=== PATIENT | female | born 1985 | race Caucasian/White ===

== ENCOUNTER 2023-04-20 13:04 | Outpatient (CLI) | payer BC, SELFPAY ==
--- NOTE | 2023-04-20 14:30 | NEURO_ITS ---
Impression: # Complains of tingling/numbness of hands. ? # No Carpal Tunnel Syndrome or ulnar neuropathy. ? # Needle/EMG exam not requested. ? # Clinical correlation recommended. ? Nerve Conduction Studies Anti Sensory Summary Table Stim Site NR Peak (ms) P-T Amp (?V) Site1 Site2 Delta-P (ms) Dist (cm) Elias (m/s) Left Median Anti Sensory (2-3nd Digit) Wrist 2.4 74.7 Wrist 2-3nd Digit 2.4 14.0 58 Wrist 2.3 73.5 Wrist 2-3nd Digit 2.4 14.0 58 Right Median Anti Sensory (2-3nd Digit) Wrist 2.5 80.1 Wrist 2-3nd Digit 2.5 14.0 56 Wrist 2.5 84.5 Wrist 2-3nd Digit 2.5 14.0 56 Left Radial Anti Sensory (Base 1st Digit) Wrist 1.9 30.4 Wrist Base 1st Digit 1.9 0.0 Right Radial Anti Sensory (Base 1st Digit) Wrist 2.2 14.8 Wrist Base 1st Digit 2.2 0.0 Left Ulnar Anti Sensory (5th Digit) Wrist 2.4 52.9 Wrist 5th Digit 2.4 14.0 58 Right Ulnar Anti Sensory (5th Digit) Wrist 2.3 80.7 Wrist 5th Digit 2.3 14.0 61 Motor Summary Table Stim Site NR Onset (ms) O-P Amp (mV) Site1 Site2 Delta-0 (ms) Dist (cm) Elias (m/s) Left Median Motor (Abd Poll Brev) Wrist 3.1 3.4 Elbow Wrist 4.2 29.0 69 Elbow 7.3 7.9 Right Median Motor (Abd Poll Brev) Wrist 2.9 10.3 Elbow Wrist 4.4 27.0 61 Elbow 7.3 8.8 Left Ulnar Motor (Abd Dig Minimi) Wrist 2.3 8.4 A Elbow Wrist 4.4 26.0 59 A Elbow 6.7 8.0 Right Ulnar Motor (Abd Dig Minimi) Wrist 2.1 8.8 A Elbow Wrist 4.4 26.0 59 A Elbow 6.5 7.9 F Wave Studies NR F-Lat (ms) L-R F-Lat (ms) Left Median (Mrkrs) (Abd Poll Brev) 24.30 1.03 Right Median (Mrkrs) (Abd Poll Brev) 25.33 1.03 Left Ulnar (Mrkrs) (Abd Dig Min) 24.82 0.82 Right Ulnar (Mrkrs) (Abd Dig Min) 24.01 0.82 MTDD
== END 2023-04-20 13:05 | disposition home or self-care (01) ==
LOC: ANHNEURO 13:05
PROVIDERS: Visit Provider Plastic Surgery
DX: R20.2 Paresthesia of skin (principal)
CPT/HCPCS: 95911

== ENCOUNTER 2024-05-15 02:24 | Day surgery (SDC) | payer BC, SELFPAY ==
[2024-05-08 09:50] VITALS: BMI 20.4
--- NOTE | 2024-05-08 09:56 | PC.NURSE ---
Report to the Outpatient Waiting Room, entrance under the green pavilion located off [facility], at time _0800_ on date _[id number]_. Planned Procedure Time: _1000_.? Time changes happen often and if your time is changed the preop area will call you the afternoon before. - You and your visitor will be asked to self-screen and do not enter if you have any COVID symptoms. Please call surgeon if you need to reschedule. - A mask is optional within the hospital at this time. Patients may have clear liquids (water, carbonated beverages, clear teas, apple juice) until 3 hours prior to surgery with a maximum of 20 ounces. - No food from midnight until time of surgery and no smoking, or chewing tobacco (or any form of nicotine). No chewing gum, candy or mints. Take only the following medications with a SIP of water on the morning of surgery: ___None___ DO NOT STOP ANY OF YOUR OTHER PRESCRIPTION MEDICATIONS PRIOR TO SURGERY EXCEPT THE FOLLOWING Hold all vitamins and supplements for 3 days per anesthesiologist. Medications to discontinue per physician Date to take last dose Please no make-up, nail malian, hairspray, perfume, deodorant, or body powder the day of surgery.? No jewelry (including any body piercings) or valuables the day of surgery, leave them at home.? Please take a shower or bath the night before, or the morning of, surgery with an antibacterial soap.? Wear comfortable, loose fitting clothing.? - Jewelry must be removed prior to entering the operating room.? Rings and piercings that are not removed may be cut off. - The hospital will not accept responsibility for valuables.? - Please leave all valuables, including medications, at home the day of surgery. If you are going home after surgery, a licensed food service driver must drive you home.? - NO public transportation without another adult if you receive anesthesia. - We recommend that an adult stay with you for 24 hours following discharge. - We also recommend that you do not drive, make important decision, drink alcoholic beverages, or take any drugs that were not prescribed by your health care provider for at least 24 hours after your discharge time. Follow any additional instructions given to you from your surgeon. Telephone instructions given to __Martina__and asked if any additional questions and then verbalized understanding. Patient advised to call surgeon office or pre surgery nurse liaison [phone] if any additional questions.
[2024-05-15] VITALS (9 sets, daily range): BP systolic 101–125; BP diastolic 63–71; PULSE 60–87; RESP 14–18; TEMP 36.4–36.5; O2SAT 99–100
--- OUTSIDE RECORDS SUMMARY | 2024-05-15 02:27 | XMS_ITS | Clinical Summary ---
Author Organization [facility] Address [address] [place] [address] Care Team Providers Care [employer] Architect Name Role Phone Unavailable Primary Care Provider Unavailabl e Allergies Active Allergy Reactions Criticality Noted Date Comments Amoxicillin Hives High 04/05/2023 Medications HYDROcodone-acet aminophen (NORCO) 5-325 mg tabletIndication s:Mass overlapping multiple quadrants of right breast Take 1 Tablet by mouth every 4 hours as needed for Pain, Moderate. Max Daily Amount: 6 Tablets 10 Tablet 11/01/2023 4:39 PM CDT 11/01/2023 Active amoxicillin-clav ulanate (AUGMENTIN) 875-125 mg tablet Take 1 Tablet by mouth 2 times daily. 02/24/2024 Active Active Problems Problem Noted Date Diagnosed Date Mass overlapping multiple quadrants of right belkis ast 10/07/2023 Nausea and vomiting in 07/03/2021 Encounters Date Type Department Care Team Description 05/09/2024 External Device Data [facility] ABSTRACTION Provider, Abstract 04/13/2024 External Device Data [facility]STRACTION Provider, Abstract 04/12/2024 External Device Data [facility]STRACTION Provider, Abstract 04/11/2024 11:15 AM CALL OUT CLERK Office Visit [facility] Oncology and Hematology [address] [place] [address] Sadaf Nielsen MD Lymphadenopathy (Primary Dx) 04/11/2024 External Device Data [facility] ABSTRACTION Provider, Abstract 04/07/2024 Chart Note [facility] Oncology Patient Navigation [address] [place] [address] Guillermina Laird RN Biopsy (Results) 04/07/2024 Results Follow-Up [facility] Radiology [address] [place] [phone] Lilia Fleming MD PATHOLOGY 04/07/2024 Telephone [facility] Hematology [address] [facility] [address] [place] [address] Tatum Field, INSIDE SALES PROFESSIONAL Skin irritation 04/07/2024 Telephone [facility]ematology [place] [place] [address] [facility] [address] [place] [address] Sadaf Nielsen MD Results 04/05/2024 10:31 AM CALL OUT CLERK - 04/05/2024 11:59 PM CALL OUT CLERK Hospital Encounter [facility] [place] [address] [place] [address] Sadaf Nielsen MD Discharge Disposition: Home or Self Care 04/05/2024 10:31 AM CALL OUT CLERK - 04/05/2024 11:59 PM CALL OUT CLERK Hospital Encounter [facility] [address] [address] [facility] [place] [address] Sadaf Nielsen MD Discharge Disposition: Home or Self Care 04/05/2024 10:28 AM CALL OUT CLERK - 04/05/2024 11:59 PM CALL OUT CLERK Hospital Encounter [facility] [address] [place] [address] Sadaf Nielsen MD Discharge Disposition: Home or Self Care 03/23/2024 Telephone [facility] Hematology [address] [address] [facility] [facility] [address] [place] [address] Sadaf Nielsen MD order 03/20/[facility] [address] [place] [address] Greta Robertson, CONY schedule biopsy 03/16/2024 Orders Only [facility] Hematology [address] [address] [facility] [facility] [address] [place] [address] Sadaf Nielsen MD Lymphadenopathy (Primary Dx) 03/14/2024 8:01 AM CALL OUT CLERK - 03/14/2024 11:59 PM CALL OUT CLERK Hospital Encounter [facility] CT Scan [place] [address] [facility] [address] [place] [phone] Sadaf Nielsen MD Discharge Disposition: Home or Self Care 03/06/2024 Chart Note [facility] [address] [place] [address] Evelyn Montanez, HOSPITAL SOCIAL WORKER Procedure 2024 Telephone [facility] H[facility]ology [address] [facility] [address] [place] [address] Sadaf Nielsen MD Results 2024 Orders Only [facility]ology [place] [place] [address] [facility] [address] [place] [address] Sadaf Nielsen MD Lymphadenopathy (Primary Dx) 2024 Orders Only [facility]ematology [place] [place] [address] [facility] [address] [place] [address] Sadaf Nielsen MD Lymphadenopathy (Primary Dx) 02/29/2024 11:45 AM CALL OUT CLERK Office Visit [facility] Breast Surgery [address] [address] [facility] [facility] [address] [place] [address] Tatum Field, INSIDE SALES PROFESSIONAL At high risk for breast cancer (Primary Dx); Family history of breast cancer; Atypical ductal hyperplasia of right breast; Breast cancer screening by mammogram; Bilateral breast lump; Axillary adenopathy; Cervical adenopathy 02/29/2024 11:30 AM CALL OUT CLERK - 02/29/2024 11:59 PM CALL OUT CLERK Hospital Encounter [facility] [address] [place] [address] Tatum Field, INSIDE SALES PROFESSIONAL Discharge Disposition: Home or Self Care 02/29/2024 11:15 AM CALL OUT CLERK - 02/29/2024 11:59 PM CALL OUT CLERK Hospital Encounter [facility] [address] [place] [address] Tatum Field, INSIDE SALES PROFESSIONAL Discharge Disposition: Home or Self Care 02/29/2024 10:30 AM CALL OUT CLERK Office Visit [facility] Hematology [address] [place] [address] Sadaf Nielsen MD Lymphadenopathy (Primary Dx) 02/29/2024 Orders Only [facility] Hematology [address] [place] [address] Sadaf Nielsen MD Lymphadenopathy (Primary Dx) 02/29/2024 Telephone [facility] Breast Surgery [address] [place] [address] Tatum Field, INSIDE SALES PROFESSIONAL Diagnostic Mammogram and Bilateral LTD US from Last 3 Months Family History Medical History Relation Name Comments Breast Cancer Maternal Grandmother Breast Cancer Paternal Grandmother Breast Cancer Sister Ovarian Cancer Neg Hx Pancreatic Cancer Neg Hx Relation Name Status Comments Maternal Aunt Alive Maternal Grandmother Paternal Grandmother Sister Social History Tobacco Use Types Packs/Day Years Used Date Smoking Tobacco: Never Tobacco Cessation:Counseling Given: Not Answered Alcohol Use Standard Drinks/Week Comments Never 0 (1 standard drink = 0.6 oz pur e alcohol) Feeling Safe Answer Date Recorded Within the last year, have y ou been afraid of your partner or ex-partner? No 10/07/2023 Emotionally Abused Not on file 10/07/2023 Within the last year, have y ou been kicked, hit, slapped, or otherwise physically hurt by your partner or ex-partner? No 10/07/2023 Sexually Abused Not on file 10/07/2023 Feeling Safe Answer Date Recorded Do you worry about feeling s afe and happy with the people in your life? No 04/11/2024 Feeling Safe Answer Date Recorded Are you in a relationship wi th someone who hurts you emotionally and/or physically? No 11/01/2023 Food Insecurity Answer Date Recorded Social/Environmental Concerns No concerns Transportation Needs Answer Date Record ed Social/Environmental Concerns No concerns Housing Stability Answer Date Recorded Social/Environmental Concerns No concerns Utility Needs Answer Date Recorded Social/Environmental Concerns No concerns Comments No Sex and Gender Information Value Date Recorded Sex Assigned at Not on file Legal Sex Female 1:14 PM CDT Gender Identity Not on file Sexual Orientation Not on file Last Filed Vital Signs Vital Sign Reading Time Taken Comments Blood Pressure 130/88 04/11/2024 11:16 AM CALL OUT CLERK Pulse 88 04/11/2024 11:16 AM CALL OUT CLERK Temperature 37.2 C (99 F) 04/11/2024 11:16 AM CALL OUT CLERK Respiratory Rate 18 11/01/2023 4:47 PM CDT Oxygen Saturation 99% 04/11/2024 11:16 AM CALL OUT CLERK Inhaled Oxygen Concentration - - Weight 58.5 kg (129 lb) 04/11/2024 11:16 AM CALL OUT CLERK Height 160 cm (5' 3 ) 04/11/2024 11:16 AM CALL OUT CLERK Body Mass Index 22.85 04/11/2024 11:16 AM CALL OUT CLERK Plan of Treatment Upcoming Encounters Date Type Department Care Team (Late st Contact Info) Description 05/29/2024 11:00 AM CDT Office Visit [facility] On[facility] Hematology [address] [address] [facility] [address] [place] [address] [place] [address] [facility] [address] [place] [address] 04/02/2025 11:00 AM CALL OUT CLERK [facility] [address] [place] [address] Tatum Field, INSIDE SALES PROFESSIONAL [address] [facility] [address] [place] [address] Health Maintenance Due Date Last Done Comments DTAP/TDAP/TD VACCINES (1 - Tdap) 2005 HEPATITIS B VACCINES (1 of 3 - 19+ 3-dose series) 2005 CERVICAL CANCER SCREENING 2016 INFLUENZA VACCINE (#1) 2023 HPV VACCINES Aged Out No longer eligi ble based on patient's age to complete this topic Procedures Procedure Name Priority Date/Time Associated Diagnosis Comments MAMMO US BIOPSY LYMPH NODE RT Routine 04/05/2024 12:49 PM CALL OUT CLERK Lymphadenopathy MAMMO POST US/STEREO GUIDED PROCEDURE BILATERAL Routine 04/05/2024 12:49 PM CALL OUT CLERK Abnormal finding on breast imaging MAMMO US BIOPSY LYMPH NODE LT Routine 04/05/2024 12:48 PM CALL OUT CLERK Abnormal finding on breast imaging PATHOLOGY Pathology 04/05/2024 12:47 PM CALL OUT CL[address] CHEST ABDOMEN PELVIS W CONT Routine 03/14/2024 8:35 AM CALL OUT CLERK Lymphadenopathy EBV BY PCR Routine 03/06/2024 12:59 PM CALL OUT CLERK Lymphadenopathy JOS SCREEN W/REFLEX Routine 02/29/2024 1 :37 PM CALL OUT CLERK Lymphadenopathy CMV IGG AND IGM ANTIBODIES Routine 02/29/2024 1:37 PM CALL OUT CLERK Lymphadenopathy EBV ANTIBODY PANEL Routine 02/29/2024 1: 37 PM CALL OUT CLERK Lymphadenopathy C-REACTIVE PROTEIN Routine 02/29/2024 1: 37 PM CALL OUT CLERK Lymphadenopathy LACTATE DEHYDROGENASE Routine 02/29/2024 1:37 PM CALL OUT CLERK Lymphadenopathy COMPREHENSIVE METABOLIC PANEL Routine 02/29/2024 1:37 PM CALL OUT CLERK Lymphadenopathy CBC WITH DIFFERENTIAL Routine 02/29/2024 1:37 PM CALL OUT CLERK Lymphadenopathy MAMMO BREAST US BILAT LTD Routine 02/29/2024 12:52 PM CALL OUT CLERK Bilateral breast lump MAMMO 3D DAVID DIAGNOSTIC BILAT W OR WO CAD Routine 02/29/2024 12:52 PM CALL OUT CLERK Bilateral breast lump VITAMIN B12 AND FOLATE [facility] Add-on (Auto-Fax) 02/29/2024 12:00 AM CALL OUT CLERK Lymphadenopathy IRON, TIBC, AND PERCENT SATURATION [facility] Add-on (Auto-Fax) 02/29/2024 12:00 AM CALL OUT CLERK Lymphadenopathy from Last 3 Months Results * MAMMO US BIOPSY LYMPH NODE RT (04/05/2024 12:49 PM CALL OUT CLERK) Anatomical Region Laterality Modality Breast Right Ultrasound Tissue ([place] Lymph Node) 04/05/2024 11:58 AM CALL OUT CLERK Addenda Addendum by Lilia Fleming MD on 04/07/2024 1:25 PM CALL OUT CLERK Pathology addendum: Pathology results: FINAL DIAGNOSIS Lymph node, left axilla, ultrasound-guided core biopsy: -Reactive lymphoid hyperplasia. Lymph node, left axilla, flow cytometric immunophenotypic analysis: -No aberrant T-cell or monotypic population of B cells. -Small subpopulation of polytypic B cells coexpressing CD10, representing reactive germinal centers. Lymph node, right axilla, ultrasound-guided core biopsy: -Reactive lymphoid hyperplasia with clusters of histiocytes. -AFB and GMS stains negative for mycobacterial and fungal microorganisms. -CMV immunohistochemical stain negative for viral inclusions. Lymph node, right axilla, flow cytometric immunophenotypic analysis: -No aberrant T-cell or monotypic population of B cells. -Small subpopulation of polytypic B cells coexpressing CD10, representing reactive germinal centers. The pathology results are benign and concordant with imaging. Annual screening mammography advised unless otherwise clinically indicated. The ordering provider and/or breast center nurse navigator will notify the patient of these results. Impressions 04/05/2024 12:46 PM CALL OUT CLERK IMPRESSION: Status post a sonographically guided core biopsy of a left axillary lymph node. Status post a sonographically guided core biopsy of a right axillary lymph node. Pathology pending. DICTATION LOCATION: [facility] 04/05/2024 12:46 PM CALL OUT CLERK SONOGRAPHICALLY GUIDED CORE BIOPSY OF THE LEFT BREAST SONOGRAPHICALLY GUIDED CORE BIOPSY OF THE RIGHT BREAST. DIGITAL MAMMOGRAM, BILATERAL. DATE: 04/05/2024 11:13 AM HISTORY: Bilateral lymphadenopathy. History of atypical ductal hyperplasia. PROCEDURE AND FINDINGS: LEFT BREAST: A sonographically guided core biopsy of a abnormal left axillary lymph node was performed. The overlying skin was cleansed with ChloraPrep. 1% lidocaine was injected for anesthesia. A small 4 mm skin beverly was made with an 11 blade scalpel. Under sonographic guidance, a 12-gauge spring-assisted core biopsy needle was inserted through the skin beverly and positioned adjacent to the mass. Multiple cores were obtained. Cores were placed in a vial of physiologic saline and some cores were placed formalin. The specimen sent to pathology. A postbiopsy localization HydroMark Butter-Fly clip was deployed under sonographic guidance. Followup [facility] mammogram demonstrated the clip to be in satisfactory position. After the biopsy was completed, pressure was held over the site until all visible signs of bleeding had subsided. The incision was closed with Dermabond and a Steri-Strip. Ice pack was given for comfort. RIGHT BREAST: A sonographically guided core biopsy of a abnormal right axillary lymph node was performed. The overlying skin was cleansed with ChloraPrep. 1% lidocaine was injected for anesthesia. A small 4 mm skin beverly was made with an 11 blade scalpel. Under sonographic guidance, a 12-gauge spring-assisted core biopsy needle was inserted through the skin beverly and positioned adjacent to the mass. Multiple cores were obtained. Cores were placed in a vial of physiologic saline and some cores were placed formalin. The specimen sent to pathology. A postbiopsy localization HydroMark Butter-Fly clip was deployed under sonographic guidance. Followup [facility] mammogram demonstrated the clip to be in satisfactory position. After the biopsy was completed, pressure was held over the site until all visible signs of bleeding had subsided. The incision was closed with Dermabond and a Steri-Strip. Ice pack was given for comfort. Postbiopsy instructions were reviewed with the patient. She left the breast center in good condition. us Sadaf Nielsen MD MAMMO ORDERABLES Edited Result - Final * MAMMO POST US/STEREO GUIDED PROCEDURE BILATERAL (04/05/2024 12:49 PM CALL OUT CLERK) Anatomical Region Laterality Modality Breast Bilateral Mammography 04/05/2024 11:1 4 AM CALL OUT CLERK Addenda Addendum by Lilia Fleming MD on 04/07/2024 1:25 PM CALL OUT CLERK Pathology addendum: Pathology results: FINAL DIAGNOSIS Lymph node, left axilla, ultrasound-guided core biopsy: -Reactive lymphoid hyperplasia. Lymph node, left axilla, flow cytometric immunophenotypic analysis: -No aberrant T-cell or monotypic population of B cells. -Small subpopulation of polytypic B cells coexpressing CD10, representing reactive germinal centers. Lymph node, right axilla, ultrasound-guided core biopsy: -Reactive lymphoid hyperplasia with clusters of histiocytes. -AFB and GMS stains negative for mycobacterial and fungal microorganisms. -CMV immunohistochemical stain negative for viral inclusions. Lymph node, right axilla, flow cytometric immunophenotypic analysis: -No aberrant T-cell or monotypic population of B cells. -Small subpopulation of polytypic B cells coexpressing CD10, representing reactive germinal centers. The pathology results are benign and concordant with imaging. Annual screening mammography advised unless otherwise clinically indicated. The ordering provider and/or breast center nurse navigator will notify the patient of these results. Impressions 04/05/2024 12:46 PM CALL OUT CLERK IMPRESSION: Status post a sonographically guided core biopsy of a left axillary lymph node. Status post a sonographically guided core biopsy of a right axillary lymph node. Pathology pending. DICTATION LOCATION: [facility] 04/05/2024 12:46 PM CALL OUT CLERK SONOGRAPHICALLY GUIDED CORE BIOPSY OF THE LEFT BREAST SONOGRAPHICALLY GUIDED CORE BIOPSY OF THE RIGHT BREAST. DIGITAL MAMMOGRAM, BILATERAL. DATE: 04/05/2024 11:13 AM HISTORY: Bilateral lymphadenopathy. History of atypical ductal hyperplasia. PROCEDURE AND FINDINGS: LEFT BREAST: A sonographically guided core biopsy of a abnormal left axillary lymph node was performed. The overlying skin was cleansed with ChloraPrep. 1% lidocaine was injected for anesthesia. A small 4 mm skin beverly was made with an 11 blade scalpel. Under sonographic guidance, a 12-gauge spring-assisted core biopsy needle was inserted through the skin beverly and positioned adjacent to the mass. Multiple cores were obtained. Cores were placed in a vial of physiologic saline and some cores were placed formalin. The specimen sent to pathology. A postbiopsy localization HydroMark Butter-Fly clip was deployed under sonographic guidance. Followup [facility] [place] mammogram demonstrated the clip to be in satisfactory position. After the biopsy was completed, pressure was held over the site until all visible signs of bleeding had subsided. The incision was closed with Dermabond and a Steri-Strip. Ice pack was given for comfort. RIGHT BREAST: A sonographically guided core biopsy of a abnormal right axillary lymph node was performed. The overlying skin was cleansed with ChloraPrep. 1% lidocaine was injected for anesthesia. A small 4 mm skin beverly was made with an 11 blade scalpel. Under sonographic guidance, a 12-gauge spring-assisted core biopsy needle was inserted through the skin beverly and positioned adjacent to the mass. Multiple cores were obtained. Cores were placed in a vial of physiologic saline and some cores were placed formalin. The specimen sent to pathology. A postbiopsy localization HydroMark Butter-Fly clip was deployed under sonographic guidance. Followup [facility] mammogram demonstrated the clip to be in satisfactory position. After the biopsy was completed, pressure was held over the site until all visible signs of bleeding had subsided. The incision was closed with Dermabond and a Steri-Strip. Ice pack was given for comfort. Postbiopsy instructions were reviewed with the patient. She left the breast center in good condition. us Sadaf Nielsen MD MAMMO ORDERABLES Edited Result - Final * MAMMO US BIOPSY LYMPH NODE LT (04/05/2024 12:48 PM CALL OUT CLERK) Anatomical Region Laterality Modality Breast Left Ultrasound Tissue ([place] Lymph Node) 04/05/2024 11:13 AM CALL OUT CLERK Addenda Addendum by Lilia Fleming MD on 04/07/2024 1:25 PM CALL OUT CLERK Pathology addendum: Pathology results: FINAL DIAGNOSIS Lymph node, left axilla, ultrasound-guided core biopsy: -Reactive lymphoid hyperplasia. Lymph node, left axilla, flow cytometric immunophenotypic analysis: -No aberrant T-cell or monotypic population of B cells. -Small subpopulation of polytypic B cells coexpressing CD10, representing reactive germinal centers. Lymph node, right axilla, ultrasound-guided core biopsy: -Reactive lymphoid hyperplasia with clusters of histiocytes. -AFB and GMS stains negative for mycobacterial and fungal microorganisms. -CMV immunohistochemical stain negative for viral inclusions. Lymph node, right axilla, flow cytometric immunophenotypic analysis: -No aberrant T-cell or monotypic population of B cells. -Small subpopulation of polytypic B cells coexpressing CD10, representing reactive germinal centers. The pathology results are benign and concordant with imaging. Annual screening mammography advised unless otherwise clinically indicated. The ordering provider and/or breast center nurse navigator will notify the patient of these results. Impressions 04/05/2024 12:46 PM CALL OUT CLERK IMPRESSION: Status post a sonographically guided core biopsy of a left axillary lymph node. Status post a sonographically guided core biopsy of a right axillary lymph node. Pathology pending. DICTATION LOCATION: [facility] 04/05/2024 12:46 PM CALL OUT CLERK SONOGRAPHICALLY GUIDED CORE BIOPSY OF THE LEFT BREAST SONOGRAPHICALLY GUIDED CORE BIOPSY OF THE RIGHT BREAST. DIGITAL MAMMOGRAM, BILATERAL. DATE: 04/05/2024 11:13 AM HISTORY: Bilateral lymphadenopathy. History of atypical ductal hyperplasia. PROCEDURE AND FINDINGS: LEFT BREAST: A sonographically guided core biopsy of a abnormal left axillary lymph node was performed. The overlying skin was cleansed with ChloraPrep. 1% lidocaine was injected for anesthesia. A small 4 mm skin beverly was made with an 11 blade scalpel. Under sonographic guidance, a 12-gauge spring-assisted core biopsy needle was inserted through the skin beverly and positioned adjacent to the mass. Multiple cores were obtained. Cores were placed in a vial of physiologic saline and some cores were placed formalin. The specimen sent to pathology. A postbiopsy localization HydroMark Butter-Fly clip was deployed under sonographic guidance. Followup [facility] mammogram demonstrated the clip to be in satisfactory position. After the biopsy was completed, pressure was held over the site until all visible signs of bleeding had subsided. The incision was closed with Dermabond and a Steri-Strip. Ice pack was given for comfort. RIGHT BREAST: A sonographically guided core biopsy of a abnormal right axillary lymph node was performed. The overlying skin was cleansed with ChloraPrep. 1% lidocaine was injected for anesthesia. A small 4 mm skin beverly was made with an 11 blade scalpel. Under sonographic guidance, a 12-gauge spring-assisted core biopsy needle was inserted through the skin beverly and positioned adjacent to the mass. Multiple cores were obtained. Cores were placed in a vial of physiologic saline and some cores were placed formalin. The specimen sent to pathology. A postbiopsy localization HydroMark Butter-Fly clip was deployed under sonographic guidance. Followup [facility] mammogram demonstrated the clip to be in satisfactory position. After the biopsy was completed, pressure was held over the site until all visible signs of bleeding had subsided. The incision was closed with Dermabond and a Steri-Strip. Ice pack was given for comfort. Postbiopsy instructions were reviewed with the patient. She left the breast center in good condition. Sadaf Nielsen MD MAMMO ORDERABLES Edited Result - Final * PATHOLOGY (04/05/2024 12:47 PM CALL OUT CLERK) CASE REPORT Surgical Pathology Report Case: [id number] Authorizing Provider: Lilia Fleming MD Collected: 04/05/2024 12:47 PM Ordering Location: [facility] Received: 04/05/2024 02:13 PM [address] Ordonez Pathologist: Stephanie Slaughter MD Specimens: A) - Lymph node, Breast, left & Lymph nodes, left B) - Lymph node, Breast, right & Lymph nodes, right C) - Lymph node, Left axilla, flow cytometry D) - Lymph node, Right axilla, flow cytometry 1:07 PM CALL OUT CLERK [facility] FINAL DIAGNOSIS Lymph node, left axilla, ultrasound-guided core biopsy: -Reactive lymphoid hyperplasia. Lymph node, left axilla, flow cytometric immunophenotypic analysis: -No aberrant T-cell or monotypic population of B cells. -Small subpopulation of polytypic B cells coexpressing CD10, representing reactive germinal centers. Lymph node, right axilla, ultrasound-guided core biopsy: -Reactive lymphoid hyperplasia with clusters of histiocytes. -AFB and GMS stains negative for mycobacterial and fungal microorganisms. -CMV immunohistochemical stain negative for viral inclusions. Lymph node, right axilla, flow cytometric immunophenotypic analysis: -No aberrant T-cell or monotypic population of B cells. -Small subpopulation of polytypic B cells coexpressing CD10, representing reactive germinal centers. 1:07 PM CALL OUT CLERK [facility] at 1307 CALL OUT CLERK GROSS DESCRIPTION The specimens are received in two containers each labeled Martina Valerio . Received in the first formalin filled container additionally labeled left breast lymph node are 2 pink-forte to yellow fibrofatty tissue cores measuring 1.3 and 1.5 cm in length and each measuring 0.3 cm in diameter. All are submitted in cassettes A1 and A2. Additionally received with the specimen in saline is a single pink-forte to yellow fibrofatty tissue core measuring 1.5 cm in length and 0.3 cm in diameter. The tissue is placed into RPMI and sent to [facility] for flow cytometry. Received in the second formalin filled container additionally labeled right breast lymph node are 2 pink to yellow fibrofatty tissue cores measuring 1.7 and 1.8 cm in length and each measuring 0.3 cm in diameter. All are submitted in cassettes B1 and B2. Additionally received with the specimen in saline is a single pink-forte fibrofatty tissue core measuring approximately 2.0 cm in length and 0.3 cm in diameter. The cores placed into RPMI and sent to [facility] for flow cytometry. [facility] 5 1:07 PM [facility] MICROSCOPIC DESCRIPTION The slides are labeled [id number] and Martina Valerio. Sections of left axillary lymph node reveal a small core of a lymph node with small germinal centers and focal acute inflammation. No Hodgkin like cells or sheets of large atypical lymphocytes are noted. To highlight the architecture of the lymph node, immunohistochemical stains are performed. CD20 highlights a lymphoid follicle. CD10 weakly stains an enlarged germinal center . CD23 stains intact dendritic meshwork. Bcl-2 stains majority of the cells except the germinal center. Cyclin D1 is negative. CD3 stains interfollicular small and mature T cells. CD30 is negative for Hodgkin cells and highlights rare activated lymphocytes. Sections of right axillary lymph node reveal cores of a lymph node with lymphoid hyperplasia and aggregates of epithelioid histiocytes, however, no well-formed granuloma is noted. To highlight the architecture of the lymph node, immunohistochemical stains are performed. CD163 stains the histiocytes. CD20 stains the lymphoid follicles. CD10 stains enlarged germinal centers which are negative for Bcl-2. Cyclin D1 is negative. CD23 stains intact dendritic meshwork. CD5 and CD3 stain interfollicular small and mature T cells. AFB and GMS stains are negative for mycobacterial and fungal microorganisms. CMV immunohistochemical stain is negative for viral inclusions. 5 1:07 PM [facility] LABORATORY [facility] OPERATIVE PROCEDURE bilateral core biopsies. ultrasound guided 5 1:07 PM [facility] CLINICAL INFORMATION Left Breast Lymph Node Tissue Obtained @ 1150 In Formalin @ 1155 Right Breast Lymph Node Tissue Obtained @ 1210 In Formalin @ 1215 bilateral abnormal lymph nodes. birads 4 5 1:07 PM [facility] IMMUNOPHENOTYPIC ANALYSIS Flow cytometric analysis of the suspension prepared from the left axillary lymph node reveals a viability of 96% with 98% of cells detected in the lymphocyte region. Cells within the lymphocyte region are composed of 61% T cells with CD4/CD8 ratio of 1, 39% polytypic B cells and 1% NK cells. There is no aberrant loss or gain of CD2, CD5 or CD7 by the T-cell population. A small subpopulation of polytypic B cells coexpressing CD10, representing reactive germinal centers. Flow cytometric analysis of the suspension prepared from the right axillary lymph node reveals a viability of 97% with 99% of cells detected in the lymphocyte region. Cells within the lymphocyte region are composed of 71% T cells with CD4/CD8 ratio of 2, 27% polytypic B cells and 2% NK cells. There is no aberrant loss or gain of CD2, CD5 or CD7 by the T-cell population. A small subpopulation of polytypic B cells coexpressing CD10, representing reactive germinal centers. Based on the flow cytometric data which fails to identify an aberrant population of T cells or a monotypic population of B cells, there is no diagnostic evidence of involvement of the flow cytometry specimen of left axillary lymph node and the right axillary lymph node by non-Hodgkin lymphoma. The technical component of flow cytometric analysis ([address] and [address] markers) are performed by [facility], [place], [place]. To view the report, click the link below. 5 1:07 PM CALL OUT CLERK [facility] COMMENT Special stain, immunohistochemical, and/or in situ hybridization results are interpreted with controls that demonstrate appropriate staining reactions. Note on use of immunohistochemistry reagents and in situ hybridization probes: These tests were developed and their performance characteristics determined by [facility], Department of Laboratory Medicine. It has not been cleared or approved by the U.S. Food and Drug Administration. The FDA has determined that such clearance or approval is not necessary. The test is used for clinical purposes. It should not be regarded as investigational or for research. This laboratory is certified to perform high complexity testing. Frozen section/operating room consultation, gross examination and dissection, and case sign out may have been performed in part or completely in the following laboratories: [facility], CLIA #[id number] [address] [place] [address] [facility], CLIA #[id number] [address] [place] [address] [facility]/[place], [place] #[id number] [address] , [place] [address] This report was created with the iSentium voice-activated dictation system. Inherent to this system is the possibility of syntax, grammar, punctuation and other errors that could impact the interpretation of the report. If there are interpretative questions about aspects of this report, please contact the performing pathologist. 1:07 PM CALL OUT CLERK [facility] Tissue ENTIRE LYMPH NODE / Unknown Collection / Unknown 04/05/2024 12:47 PM CALL OUT CLERK 04/05/2024 2:13 PM CALL OUT CLERK Comment:Left Breast Lymph No deTissue Obtained @ 1150In Formalin @ 1155Right Breast Lymph NodeTissue Obtained @ 1210In Formalin @ 1215 Tissue specimen (specimen) ENTIRE LYMPH NODE / Unknown 04/05/2024 12:47 PM CALL OUT CLERK 04/05/2024 2:13 PM CALL OUT CLERK Comment:Left Breast Lymph No deTissue Obtained @ 1150In Formalin @ 1155Right Breast Lymph NodeTissue Obtained @ 1210In Formalin @ 1215 Tissue specimen (specimen) ENTIRE LYMPH NODE / Unknown 04/05/2024 12:47 PM CALL OUT CLERK 04/05/2024 3:01 PM CALL OUT CLERK Tissue specimen (specimen) ENTIRE LYMPH NODE / Unknown 04/05/2024 12:47 PM CALL OUT CLERK 04/07/2024 12:50 PM CALL OUT CLERK Lilia Fleming MD PATHOLOGY/CYTOLOGY ORDERAB LES Final Result [facility] [id number] [address] [place]ER[place] [address] * CT CHEST ABDOMEN PELVIS W CONT (03/14/2024 8:35 AM CALL OUT CLERK) Anatomical Region Laterality Modality Chest Computed Tomogra phy 03/14/2024 9:31 AM CALL OUT CLERK Impressions 03/14/2024 1:59 PM CALL OUT CLERK IMPRESSION: Chest CT: 1. Nonspecific bilateral axillary lymphadenopathy. Consider neoplastic processes Abdomen / Pelvis CT: 1. No lymphadenopathy in the abdomen/pelvis. 2. There is a 4 mm cystic appearing lesion in the pancreatic tail. Follow-up MRI/MRCP in 6 months is recommended. [employer] message sent. DICTATION LOCATION: [facility] [address] [place] [address] Joseph Jones 03/14/2024 1:59 PM CALL OUT CLERK CT CHEST ABDOMEN PELVIS W CONT DATE: 03/14/2024 8:35 AM HISTORY: Lymphadenopathy, chest or axilla. 39-year-old female TECHNIQUE: Helical scanning of the chest, abdomen, and pelvis with IV contrast. (2-D sagittal and coronal reconstructed images obtained. Examination performed with adjustment of mA according to the patient size and/or the use of Iterative Reconstruction Technique. CONTRAST: IOPAMIDOL 61 % INTRAVENOUS SOLUTION (MULTI-DOSE BULK PACK) Given:70 mL COMPARISON: None FINDINGS: CHEST CT: LUNGS/AIRWAYS/PLEURA: Small calcified right middle lobe pulmonary nodule. 2 mm noncalcified right lower lobe nodule image 220, series 2. 3 mm left upper lobe pulmonary nodule image 2020, series 2. Patent central airways. No focal consolidation or pleural effusion. MEDIASTINUM AND TATYANA: No adenopathy. AXILLA: 11 mm enlarged left axillary lymph node. 12 mm enlarged right axillary lymph node. THYROID: Visualized portions are within normal limits. HEART/VESSELS: Within normal limits. ESOPHAGUS: Within normal limits BONES - THORACIC: Within normal limits. CHEST WALL: Within normal limits. ABDOMEN / PELVIS CT: LIVER: Within normal limits. BILE DUCTS: Within normal limits. GALLBLADDER: Within normal limits. SPLEEN: Within normal limits. PANCREAS: 4 mm low-density lesion in the tail ADRENALS: Within normal limits. KIDNEYS/URETERS: Too small to characterize low-density right lower pole lesion. ABDOMINAL/RETROPERITONEAL LYMPH NODES: No adenopathy. VASCULATURE: Within normal limits. PELVIC LYMPH NODES: No pathologic adenopathy. LARGE / SMALL BOWEL: No acute colonic abnormality. Nonvisualization of the appendix. STOMACH / DUODENUM: Within normal limits. MESENTERY: No adenopathy. BLADDER: Decompressed limiting its evaluation. REPRODUCTIVE ORGANS: Peripherally enhancing structure in the left adnexa can represent a corpus luteum. MUSCULOSKELETAL: Within normal limits. ABDOMINAL WALL: Within normal limits. PERITONEUM / RETROPERITONEUM: Small amount of free fluid in the pelvis. Procedure Note iRaz Frankel MD - 03/14/2024 CT CHEST ABDOMEN PELVIS W CONT DATE: 03/14/2024 8:35 AM HISTORY: Lymphadenopathy, chest or axilla. 39-year-old female TECHNIQUE: Helical scanning of the chest, abdomen, and pelvis with IV contrast. (2-D sagittal and coronal reconstructed images obtained. Examination performed with adjustment of mA according to the patient size and/or the use of Iterative Reconstruction Technique. CONTRAST: IOPAMIDOL 61 % INTRAVENOUS SOLUTION (MULTI-DOSE BULK PACK) Given:70 mL COMPARISON: None FINDINGS: CHEST CT: LUNGS/AIRWAYS/PLEURA: Small calcified right middle lobe pulmonary nodule. 2 mm noncalcified right lower lobe nodule image 220, series 2. 3 mm left upper lobe pulmonary nodule image 2020, series 2. Patent central airways. No focal consolidation or pleural effusion. MEDIASTINUM AND TATYANA: No adenopathy. AXILLA: 11 mm enlarged left axillary lymph node. 12 mm enlarged right axillary lymph node. THYROID: Visualized portions are within normal limits. HEART/VESSELS: Within normal limits. ESOPHAGUS: Within normal limits BONES - THORACIC: Within normal limits. CHEST WALL: Within normal limits. ABDOMEN / PELVIS CT: LIVER: Within normal limits. BILE DUCTS: Within normal limits. GALLBLADDER: Within normal limits. SPLEEN: Within normal limits. PANCREAS: 4 mm low-density lesion in the tail ADRENALS: Within normal limits. KIDNEYS/URETERS: Too small to characterize low-density right lower pole lesion. ABDOMINAL/RETROPERITONEAL LYMPH NODES: No adenopathy. VASCULATURE: Within normal limits. PELVIC LYMPH NODES: No pathologic adenopathy. LARGE / SMALL BOWEL: No acute colonic abnormality. Nonvisualization of the appendix. STOMACH / DUODENUM: Within normal limits. MESENTERY: No adenopathy. BLADDER: Decompressed limiting its evaluation. REPRODUCTIVE ORGANS: Peripherally enhancing structure in the left adnexa can represent a corpus luteum. MUSCULOSKELETAL: Within normal limits. ABDOMINAL WALL: Within normal limits. PERITONEUM / RETROPERITONEUM: Small amount of free fluid in the pelvis. IMPRESSION: Chest CT: 1. Nonspecific bilateral axillary lymphadenopathy. Consider neoplastic processes Abdomen / Pelvis CT: 1. No lymphadenopathy in the abdomen/pelvis. 2. There is a 4 mm cystic appearing lesion in the pancreatic tail. Follow-up MRI/MRCP in 6 months is recommended. EP[employer] message sent. DICTATION LOCATION: Location [address] [place] [address] ORDERABLES Final Result * EBV BY PCR (03/06/2024 12:59 PM CALL OUT CLERK) Pathologist [facility] QUEST RESULT Not Detected Not Detected IU/mL [facility] Comment:Quest component Name and Code: EBV DNA, QN PCR [[id number]] QUEST RESULT Not Detected Not Detected log IU/mL [facility] Comment: [facility] component Name and Code: EBV DNA, QN PCR [[id number]] (Note) For additional information, please refer to http://education.Discrete Sport/faq/CMVandEBVPCR (This link is being provided for informational/educational purposes only.) [facility] [address] [place] [address],[address] [place] [address] Maxi Dee MD, PhD Test Performed at: [facility] [address] [place] [address], [address] [place] [phone] Maxi Dee MD,PhD Blood 03/06/2024 12:5 9 PM CALL OUT CLERK 03/06/2024 1:01 PM CALL OUT CLERK Sadaf Nielsen MD CHEMISTRY ORDERABLES Final Resu lt [facility] [phone] [facility] [address] [place] [address], [address] [place] [phone] * (ABNORMAL) EBV ANTIBODY PANEL (02/29/2024 1:37 PM CALL OUT CLERK) [facility] EBV IGM, VCA 39.40(H) U/mL [facility] Comment: U/mL Interpretation ---- <36.00 Negative 36.00-43.99 Equivocal >43.99 Positive EBV IGG, VCA 256.00(H) U/mL [facility] Comment: U/mL Interpretation ---- <18.00 Negative 18.00-21.99 Equivocal >21.99 Positive EBV NUC IGG 85.50(H) U/mL [facility] Comment: U/mL Interpretation ---- <18.00 Negative 18.00-21.99 Equivocal >21.99 Positive EBV INTERP: [facility] Comment: This pattern is most consistent with a past Isabel-Colindres virus infection but could also indicate a more recent infection. FASTING:YES FASTING: YES Test Performed at: [facility] [address] [place] [address] Kerry Hsu MD Blood 02/29/2024 1:37 PM CALL OUT CLERK 02/29/2024 1:39 PM CALL OUT CLERK us Sadaf Nielsen MD CHEMISTRY ORDERABLES Final Resu lt [facility] [phone] [facility] [place] [address] * (ABNORMAL) CMV IGG AND IGM ANTIBODIES (02/29/2024 1:37 PM CALL OUT CLERK) Pathologist [facility] CMV IGG 4.00(H) U/mL [facility] Comment: U/mL Interpretation ----- <0.60 Negative 0.60-0.69 Equivocal > or = 0.70 Positive A positive result indicates that the patient has antibody to CMV. It does not differentiate between an active or past infection. CMV IGM <30.00 AU/mL [facility] Comment: AU/mL Interpretation ----- <30.00 No Antibody Detected 30.00-34.99 Equivocal > or = 35.00 Antibody Detected Results from any one IgM assay should not be used as a sole determinant of a current or recent infection. Because an IgM test can yield false positive results and low level IgM antibody may persist for more than 12 months post infection, reliance on a single test result could be misleading. Acute infection is best diagnosed by demonstrating the conversion of IgG from negative to positive. If an acute infection is suspected, consider obtaining a new specimen and submit for both IgG and IgM testing in two or more weeks. Test Performed at: [facility] [address] [place] [phone] Kerry Hsu MD Blood 02/29/2024 1:37 PM CALL OUT CLERK 02/29/2024 1:39 PM CALL OUT CLERK Sadaf Nielsen MD CHEMISTRY ORDERABLES Final Resu lt [facility] [phone] [facility] [address] [place] [phone] * (ABNORMAL) CBC WITH DIFFERENTIAL (02/29/2024 1:37 PM CALL OUT CLERK) WBC 3.7(L) 3.8 - 10.8 Thousand/ uL [facility] RBC 5.00 3.80 - 5.10 Million/u L [facility] HEMOGLOBIN 10.7(L) 11.7 - 15.5 g/dL [facility] HEMATOCRIT 38.1 35.0 - 45.0 % [facility] MCV 76.2(L) 80.0 - 100.0 fL [facility] MCH 21.4(L) 27.0 - 33.0 pg [facility] MCHC 28.1(L) 32.0 - 36.0 g/dL [facility] Comment: For adults, a slight decrease in the calculated MCHC value (in the range of 30 to 32 g/dL) is most likely not clinically significant; however, it should be interpreted with caution in correlation with other red cell parameters and the patient's clinical condition. RDW 17.1(H) 11.0 - 15.0 % [facility] PLATELETS 249 140 - 400 Thousand/ uL [facility] MPV 10.4 7.5 - 12.5 fL [facility] NEUTROPHIL ABSOLUTE 1,428(L) 1,500 - 7,800 cells/uL [facility] LYMPHOCYTE ABSOLUTE 1,658 850 - 3,900 cells/uL [facility] MONOCYTE ABSOLUTE 496 200 - 950 cells/uL [facility] EOSINOPHIL ABSOLUTE 70 15 - 500 cells/uL [facility] BASOPHILS ABSOLUTE 48 0 - 200 cells/uL [facility] NEUTROPHIL 38.6 % [facility] LYMPHOCYTES 44.8 % [facility] MONOCYTE 13.4 % [facility] EOSINOPHILS 1.9 % [facility] BASOPHILS 1.3 % [facility] Comment: FASTING:YES FASTING: YES Test Performed at: [facility] [address] [place] [address] Kerry Hsu Blood 02/29/2024 1:37 PM CALL OUT CLERK 02/29/2024 1:39 PM CALL OUT CLERK Sadaf Nielsen MD HEMATOLOGY ORDERABLES Final Res ult Performing Organization Address City/[facility] Phone Number [facility] [phone] [place] [address] [place] [address] * C-REACTIVE PROTEIN (02/29/2024 1:37 PM CALL OUT CLERK) [facility] CRP <3.0 <8.0 mg/L [facility] Comment: FASTING:YES FASTING: YES Test Performed at: [facility] [address] [place] [phone] OpheliaBeatrice Hsu MD Blood 02/29/2024 1:37 PM CALL OUT CLERK 02/29/2024 1:39 PM CALL OUT CLERK Sadaf Nielsen MD CHEMISTRY ORDERABLES Final Resu lt Performing Organization Address City/State/ZIP Co az Phone Number [facility] [phone] [facility] [id number] [place] [address] * JOS SCREEN W/REFLEX (02/29/2024 1:37 PM CALL OUT CLERK) Pathologist [facility] JOS SCREEN NEGATIVE NEGATIVE [facility] Comment: JOS IFA is a first line screen for detecting the presence of up to approximately 150 autoantibodies in various autoimmune diseases. A negative JOS IFA result suggests an JOS-associated autoimmune disease is not present at this time, but is not definitive. If there is high clinical suspicion for Sjogren's syndrome, testing for anti-SS-A/Ro antibody should be considered. Anti-Bruna-1 antibody should be considered for clinically suspected inflammatory myopathies. AC-0: Negative International Consensus on JOS Patterns (https://doi.org/10.1515/musg-2694-8181) For additional information, please refer to http://education.Domobios/faq/UXV040 (This link is being provided for informational/ educational purposes only.) FASTING:YES FASTING: YES Test Performed at: [facility] [place] [address] Kerry Hsu MD Blood 02/29/2024 1:37 PM CALL OUT CLERK 02/29/2024 1:39 PM CALL OUT CLERK Sadaf Nielsen MD CHEMISTRY ORDERABLES Final Resu lt [facility] [phone] [address] * (ABNORMAL) LACTATE DEHYDROGENASE (02/29/2024 1:37 PM CALL OUT CLERK) LD (LACTATE DEHYDROGENASE) 210(H) 100 - 200 U/L [facility] Comment: Test Performed at: [facility] [address] [place] [address] Kerry Hsu Blood 02/29/2024 1:37 PM CALL OUT CLERK 02/29/2024 1:39 PM CALL OUT CLERK Sadaf Nielsen MD CHEMISTRY ORDERABLES Final Resu lt [facility] [phone] [place] [address] [address] [place] [phone] * COMPREHENSIVE METABOLIC PANEL (02/29/2024 1:37 PM CALL OUT CLERK) GLUCOSE 89 65 - 99 mg/dL [facility] Comment: Fasting reference interval BUN 10 7 - 25 mg/dL [facility] CREATININE 0.75 0.50 - 0.97 mg/dL [facility] GFR 104 > OR = 60 mL/min/1. 73m2 [facility] BUN/CREAT RATIO SEE NOTE: 6 - 22 (calc) [facility] Comment: Not Reported: BUN and Creatinine are within reference range. SODIUM 139 135 - 146 mmol/L [facility] POTASSIUM 4.1 3.5 - 5.3 mmol/L [facility] CHLORIDE 105 98 - 110 mmol/L [facility] CO2 27 20 - 32 mmol/L [facility] CALCIUM 9.4 8.6 - 10.2 mg/dL [facility] TOTAL PROTEIN 7.5 6.1 - 8.1 g/dL [facility] ALBUMIN 4.9 3.6 - 5.1 g/dL [facility] GLOBULIN 2.6 1.9 - 3.7 g/dL (calc) [facility] ALBUMIN/GLOBULIN RATIO 1.9 1.0 - 2.5 (calc) [facility] BILIRUBIN TOTAL 0.6 0.2 - 1.2 mg/dL [facility] ALKALINE PHOSPHATASE 78 31 - 125 U/L [facility] AST 21 10 - 30 U/L [facility] ALT 14 6 - 29 U/L [facility] Comment: FASTING:YES FASTING: YES Test Performed at: [facility] [address] [address] [place] [phone] Kerry Mitchell Vo Blood 02/29/2024 1:37 PM CALL OUT CLERK 02/29/2024 1:39 PM CALL OUT CLERK Sadaf Nielsen MD CHEMISTRY ORDERABLES Final Resu lt [facility] [phone] [facility] [place] [address] [address] [place] [phone] * (ABNORMAL) MAMMO BREAST US BILAT LTD (02/29/2024 12:52 PM CALL OUT CLERK) Anatomical Region Laterality Modality Bilateral Ultrasound 02/29/2024 12:5 2 PM CALL OUT CLERK Impressions 02/29/2024 1:45 PM CALL OUT CLERK IMPRESSION: Abnormal thickening and axillary nodes bilaterally. The patient states that she is having additional testing and if necessary axillary node biopsy could be performed. RECOMMENDATIONS: Ultrasound-guided biopsy axillary node DICTATION LOCATION: Alexandria Jones 02/29/2024 1:45 PM CALL OUT CLERK EXAM: BILATERAL DIAGNOSTIC FULL-FIELD DIGITAL MAMMOGRAPHY WITH CAD WITH 3D TOMOSYNTHESIS AND BILATERAL FOCUSED ULTRASOUND DATE: 02/29/2024 12:52 PM HISTORY: Palpable areas in both breasts. CT scan showing prominent node in the left axilla. TECHNIQUE: Mediolateral oblique and craniocaudal views of both breasts were performed using full field digital mammography. Low-dose full-field digital breast tomosynthesis examination was performed with 2D and 3D acquisitions. Examination is read in conjunction with computer aided detection. Bilateral focused ultrasound. COMPARISON: Mammogram, CT scan and MRI from 2023. BREAST COMPOSITION: The breasts are heterogeneously dense, which may obscure small masses. FINDINGS: On the mammogram, no new suspicious mass, microcalcifications or architectural distortion in either breast. 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 Abnormal axillary lymph node is seen. The cortex is about 6 mm thick. Focused ultrasound of the left breast shows no suspicious mass. Cortex in left axillary node is also abnormally thickened. OVERALL FINAL ASSESSMENT: BI-RADS CATEGORY 4: Suspicious Findings Procedure Note Mayito Norton MD - 02/29/2024 EXAM: BILATERAL DIAGNOSTIC FULL-FIELD DIGITAL MAMMOGRAPHY WITH CAD WITH 3D TOMOSYNTHESIS AND BILATERAL FOCUSED ULTRASOUND DATE: 02/29/2024 12:52 PM HISTORY: Palpable areas in both breasts. CT scan showing prominent node in the left axilla. TECHNIQUE: Mediolateral oblique and craniocaudal views of both breasts were performed using full field digital mammography. Low-dose full-field digital breast tomosynthesis examination was performed with 2D and 3D acquisitions. Examination is read in conjunction with computer aided detection. Bilateral focused ultrasound. COMPARISON: Mammogram, CT scan and MRI from 2023. BREAST COMPOSITION: The breasts are heterogeneously dense, which may obscure small masses. FINDINGS: On the mammogram, no new suspicious mass, microcalcifications or architectural distortion in either breast. 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 Abnormal axillary lymph node is seen. The cortex is about 6 mm thick. Focused ultrasound of the left breast shows no suspicious mass. Cortex in left axillary node is also abnormally thickened. OVERALL FINAL ASSESSMENT: BI-RADS CATEGORY 4: Suspicious Findings IMPRESSION: Abnormal thickening and axillary nodes bilaterally. The patient states that she is having additional testing and if necessary axillary node biopsy could be performed. RECOMMENDATIONS: Ultrasound-guided biopsy axillary node DICTATION LOCATION: [facility] [place] [employer] SAL[employer] PROFESSIONAL MAMMO ORDERABLES Final Re sult * (ABNORMAL) MAMMO 3D DAVID DIAGNOSTIC BILAT W OR WO CAD (02/29/2024 12:52 PM CALL OUT CLERK) Anatomical Region Laterality Modality Breast Bilateral Mammography 02/29/2024 12:5 2 PM CALL OUT CLERK Impressions 02/29/2024 1:45 PM CALL OUT CLERK IMPRESSION: Abnormal thickening and axillary nodes bilaterally. The patient states that she is having additional testing and if necessary axillary node biopsy could be performed. RECOMMENDATIONS: Ultrasound-guided biopsy axillary node DICTATION LOCATION: [facility] 02/29/2024 1:45 PM CALL OUT CLERK EXAM: BILATERAL DIAGNOSTIC FULL-FIELD DIGITAL MAMMOGRAPHY WITH CAD WITH 3D TOMOSYNTHESIS AND BILATERAL FOCUSED ULTRASOUND DATE: 02/29/2024 12:52 PM HISTORY: Palpable areas in both breasts. CT scan showing prominent node in the left axilla. TECHNIQUE: Mediolateral oblique and craniocaudal views of both breasts were performed using full field digital mammography. Low-dose full-field digital breast tomosynthesis examination was performed with 2D and 3D acquisitions. Examination is read in conjunction with computer aided detection. Bilateral focused ultrasound. COMPARISON: Mammogram, CT scan and MRI from 2023. BREAST COMPOSITION: The breasts are heterogeneously dense, which may obscure small masses. FINDINGS: On the mammogram, no new suspicious mass, microcalcifications or architectural distortion in either breast. 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 Abnormal axillary lymph node is seen. The cortex is about 6 mm thick. Focused ultrasound of the left breast shows no suspicious mass. Cortex in left axillary node is also abnormally thickened. OVERALL FINAL ASSESSMENT: BI-RADS CATEGORY 4: Suspicious Findings Procedure Note Mayito Norton MD - 02/29/2024 EXAM: BILATERAL DIAGNOSTIC FULL-FIELD DIGITAL MAMMOGRAPHY WITH CAD WITH 3D TOMOSYNTHESIS AND BILATERAL FOCUSED ULTRASOUND DATE: 02/29/2024 12:52 PM HISTORY: Palpable areas in both breasts. CT scan showing prominent node in the left axilla. TECHNIQUE: Mediolateral oblique and craniocaudal views of both breasts were performed using full field digital mammography. Low-dose full-field digital breast tomosynthesis examination was performed with 2D and 3D acquisitions. Examination is read in conjunction with computer aided detection. Bilateral focused ultrasound. COMPARISON: Mammogram, CT scan and MRI from 2023. BREAST COMPOSITION: The breasts are heterogeneously dense, which may obscure small masses. FINDINGS: On the mammogram, no new suspicious mass, microcalcifications or architectural distortion in either breast. 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 Abnormal axillary lymph node is seen. The cortex is about 6 mm thick. Focused ultrasound of the left breast shows no suspicious mass. Cortex in left axillary node is also abnormally thickened. OVERALL FINAL ASSESSMENT: BI-RADS CATEGORY 4: Suspicious Findings IMPRESSION: Abnormal thickening and axillary nodes bilaterally. The patient states that she is having additional testing and if necessary axillary node biopsy could be performed. RECOMMENDATIONS: Ultrasound-guided biopsy axillary node DICTATION LOCATION: [place] [facility] [place] [facility] MAMMO ORDERABLES Final Re sult * VITAMIN B12 AND FOLATE (02/29/2024 12:00 AM CALL OUT CLERK) VITAMIN B12 659 200 - 1100 pg/mL [facility] FOLATE, SERUM 17.7 ng/mL [facility] Comment: Reference Range Low: <3.4 Borderline: 3.4-5.4 Normal: >5.4 Test Performed at: [facility] [id number] [id number] Kerry Hsu MD Blood 02/29/2024 2024 2:2 8 PM CALL OUT CLERK Sadaf Nielsen MD CHEMISTRY ORDERABLES Final Resu lt Performing Organization Address [facility] Co de Phone Number [facility] [phone] [facility] [address] [place] [address] * (ABNORMAL) IRON, TIBC, AND PERCENT SATURATION (02/29/2024 12:00 AM CALL OUT CLERK) IRON 14(L) 40 - 190 mcg/dL [facility] TIBC 434 250 - 450 mcg/dL (calc) [facility] IRON % SATURATION 3(L) 16 - 45 % (calc) [facility] Comment: Test Performed at: [facility] [address] [place] [id number] Kerry Hsu MD Blood 02/29/2024 2024 2:2 1 PM CALL OUT CLERK Sadaf Nielsen MD CHEMISTRY ORDERABLES Final Resu lt Performing Organization Address [facility] Co de Phone Number [facility] [phone] [facility] [address] [place] [address] from Last 3 Months Insurance [facility] BLUE ACCESS/TRUE BLUE PPO RX [facility] [employer] [facility] BLUE ACCESS/TRUE BLUE PPO Advance Directives For more information, please contact: [phone] * Full Code (Latest Code Status on File) Date Activated Date Inactivated Comments 07/03/2021 1:36 PM 07/03/2021 8:23 PM
--- OUTSIDE RECORDS SUMMARY | 2024-05-15 02:27 | XMS_ITS | Encounter Summary ---
Author Organization [facility] Address [address] [place] [address] Care Team Providers Care Public Health Aide Name Role Phone Unavailable Primary Care Provider Unavailabl e Encounter Details Date Type Department Care Team (Late st Contact Info) Description 04/07/2024 Results Follow-Up [facility] Radiology [facility] [address] [place] [address] Lilia Fleming MD [address] [facility] [place] [address] PATHOLOGY Social History Tobacco Use Types Packs/Day Years Used Date Smoking Tobacco: Never Alcohol Use Standard Drinks/Week Comments Never 0 [...] Date Record ed Social/Environmental Concerns No concerns 07 / Housing Stability Answer Date Recorded Social/Environmental Concerns No concerns Utility Needs Answer Date Recorded Social/Environmental Concerns No concerns Comments No Sex and Gender Information Value Date Recorded Sex Assigned at Not on file Legal Sex Female 1:14 PM CDT Gender Identity Not on file Sexual Orientation Not on file documented as of this encounter Plan of Treatment Upcoming Encounters Date Type Department Care Team (Late st Contact Info) Description 05/29/2024 11:00 AM CDT Office Visit [facility] Oncology and Hematology [address] [id number] [place] [address] [facility] [address] [place] [address] 04/02/2025 11:00 AM DISPENSARY CLERK Appointment [facility] [address] [place] [phone] [address], ELECTROMECHANISMS DESIGN DRAFTER [address] [address] [facility] [address] [place] [address] documented as of this encounter Visit Diagnoses Not on filedocumented in this encounter
--- OUTSIDE RECORDS SUMMARY | 2024-05-15 02:27 | XMS_ITS | Continuity of Care Document ---
Author Organization [facility] Address [address] [place] [address] Phone Care Team Providers Care Paper Twister Tender Name Role Phone Jade Magaña OT Unavailable Unavailable Procedures Procedure Date OT Evaluation Low Complexity Therapeutic Exercise Therapeutic Activities Manual Therapy Neuromuscular Re-Ed Hot or Cold Pack Therapeutic Activities Neuromuscular Re-Ed Therapeutic Exercise Manual Therapy Neuromuscular Re-Ed Therapeutic Exercise Manual Therapy Therapeutic Activities Hot or Cold Pack Therapeutic Activities Therapeutic Exercise Manual Therapy OT Evaluation Low Complexity Advance Directives Directive Yes / No Effective Date File Name No Information Encounters Encounter Description Practice Location Reason(s) For Visit Diagnoses Date Provider Providers Copied on Encounter [facility], [place], [place], [id number], tel:[phone] [place] No Information 2 Archana Hansen. . [facility], [place], [place], [id number], tel:[phone] [place] No Information 2 Archana Hansen. . Referring Provider: Jorge A Carty, [address] [facility] [address], [place], [address]. tel:[phone] [place] [address] [facility] [address], [place], [place], [id number], tel:[phone] [place] No Information 1 Sriram Quevedo. . Referring Provider: Jorge A Carty, [address] [facility] [address], [place], [address]. tel:[phone] [facility], [address] [place], [place] [address], [place], [place], [address], tel:[phone] [place] No Information 1 Mike Arriola. . Referring Provider: Jorge A Carty, [address] [facility] [address], [place], [address]. tel:[phone], [place], [place], [address], tel:[phone] [place] No Information 1 Sriram Quevedo. . Referring Provider: Jorge A Carty, [address] [facility] [address], [place], [address]. tel:[phone] Family History Family Member Type Diagnosis Age At Onset No Information Payers Payer name Insurance type Covered green party ID Authorantoine denise(s) [facility] [id number] Social History Type Description Quantity Date Captured Comments Sex Female Smoking Status No Information Chief Complaint And Reason For Visit No Information Reason For Referral Reason For Referral No Information History Of Present Illness Encounter Date Complaint History Of Prese nt Illness No Information Functional Status Date Functional Assessmen t No Information Instructions Date Instruction Additional Infor mation No Information Assessments Type Assessment Date No Information Patient Care Teams Name Effective Dates (start - stop) Status Members No Information
--- OUTSIDE RECORDS SUMMARY | 2024-05-15 02:27 | XMS_ITS | Clinical Summary ---
Author Organization [facility] Address [address] [facility] [place] [address] Care Team Providers Care [place] Attorney Name Role Phone Aretha Ha CORNELIO-SHROUDMAN Primary Care Provider Source Comments [facility],non-owned Affiliates and Associated Physician Practices is amultiple site organization consisting of ambulatory clinics and hospital sitesin [place], [place], [place] and [place]. This disclosure is being madepursuant to the Care Everywhere program and may not contain all information available regarding this patient. Last updated [facility] Allergies No known active allergies Medications Be aware that medications may not be up to date on this document. Always verify current medications with the patient. 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 Monthly or less 04/25/2020 Average Number of Drinks Not on file 021 Frequency of Binge Drinking Not on file 06/2020 Sex and Gender Information Value Date Recorded Sex Assigned at Not on file Gender Identity Not on file Sexual Orientation Not on file Last Filed Vital Signs Vital Sign Reading Time Taken Comments Blood Pressure 112/60 12/17/2020 2:32 PM CDT Pulse 79 05/26/2018 5:52 PM DOCUMENT DESIGN SPECIALIST Temperature 36.8 C (98.2 F) 05/26/2018 5:52 PM DOCUMENT DESIGN SPECIALIST Respiratory Rate - - Oxygen Saturation 98% 05/26/2018 5:52 PM DOCUMENT DESIGN SPECIALIST Inhaled Oxygen Concentration - - Weight 55.8 kg (123 lb) 12/17/2020 2:32 PM CDT Height 160 cm (5' 3 ) 12/17/2020 2:32 PM CDT Body Mass Index 21.79 12/17/2020 2:32 PM CDT Plan of Treatment Health Maintenance Due Date Last Done Comments HIV SCREENING 2001 HEPATITIS C SCREENING 02/25/2004 DTAP/TDAP/TD VACCINES (1 - Tdap) 2005 HEPATITIS B VACCINE (1 of 3 - 19+ 3-dose series) 2005 COVID-19 VACCINE ( season) 2023 06/19/2020, 05/20/2020 INFLUENZA VACCINE (#1) 2023 , 01/02/2019, 12/27/2017, Additional history exists DEPRESSION SCREENING 03/22/2024 PAP with HPV 04/25/2025 04/25/2020, 08/0 06/2019, 04/03/2019 ZOSTER VACCINE (1 of 2) 2036 HIB VACCINE Aged Out No longer eligi ble based on patient's age to complete this topic HPV VACCINE Aged Out No longer eligi ble based on patient's age to complete this topic MENINGOCOCCAL (Group B) VACCINE Aged Out No longer eligible based on patient's age to complete this topic MENINGOCOCCAL VACCINE Aged Out No jacqueline annie eligible based on patient's age to complete this topic PNEUMOCOCCAL VACCINE Aged Out No long er eligible based on patient's age to complete this topic Procedures Procedure Name Priority Date/Time Associated Diagnosis Comments PAP IG LB+HPV APTIMA Routine 04/25/2020 9:53 AM DOCUMENT DESIGN SPECIALIST 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 Specimen Adequacy [facility] ACCOUNT BILL Comment:Satisfactory for nikita luation. No endocervical component is identified. Clinician Provided ICD10 [facility] ACCOUNT BILL Comment: Z01.419 R87.810 Performed by [facility] ACCOUNT BILL Comment:Jeovanny Corey chnologist (ASCP) Comment . [facility] ACCOUNT BILL Note [facility] ACCOUNT BILL Comment: The Pap smear is a screening test designed to aid in the detection of premalignant and malignant conditions of the uterine cervix. It is not a diagnostic procedure and should not be used as the sole means of detecting cervical cancer. Both false-positive and false-negative reports do occur. . IGLBP CPT Code Automation [facility] ACCOUNT BILL Comment: This liquid based ThinPrep(R) pap test was screened with the use of an image guided system. Human papillomavirus Aptima Negative Negative [facility] ACCOUNT BILL Comment: This nucleic acid amplification test detects fourteen high-risk HPV types (16,18,31,33,35,39,45,51,52,56,58,59,66,68) without differentiation. Pathology/Cytolog y PART OF UTERINE CERVIX / Unknown 04/25/2020 9:53 AM DOCUMENT DESIGN SPECIALIST 04/25/2020 Narrative [facility] ACCOUNT BILL - 04/27/2020 10:09 AM DOCUMENT DESIGN SPECIALIST Source.............Cervix No. of containers..01 ThinPrep Vial Resulting Agency Comment Lab Testing performed at: [address] [id number] Venkata Moreira MD LAB - PATHOLOGY/CYTO LOGY ORDERABLES [facility] ACCOUNT BILL [address] [place] [address] from Last 3 Months or Most Recently Relevant to Health Maintenance Care Teams [place] Attorney Relationship Specialty Start Date End Date Aretha Ha, HOSPICE ART THERAPIST-SHROUDMAN [address] [facility] [address] [place] [phone] PCP - General Nurse Practitioner 01/03/19
--- OUTSIDE RECORDS SUMMARY | 2024-05-15 02:27 | XMS_ITS | Continuity of Care Document ---
Author Organization [facility] Address [address] [place] [address] Phone Care Team Providers Care Priming Powder Premix Blender Name Role Phone Jorge A Box DO Unavailable Unavailable Allergies, Adverse Reactions, Alerts Substance Reaction Status Criticality No Known Allergies Active No Inform ation Procedures Procedure Date Drugs unclassified injection Betamethasone acet&sod phosp THER INJECTION CARP TUNNEL OFFICE/OUTPATIENT VISIT EST OFFICE/OUTPATIENT VISIT EST Drugs unclassified injection Betamethasone acet&sod phosp THER INJECTION CARP TUNNEL Drugs unclassified injection Betamethasone acet&sod phosp THER INJECTION CARP TUNNEL Drugs unclassified injection Betamethasone acet&sod phosp DRAIN/INJECT JOINT/BURSA Drugs unclassified injection Betamethasone acet&sod phosp DRAIN/INJECT JOINT/BURSA OFFICE/OUTPATIENT VISIT EST MRI ANY JT UXTR C-MATRL RADEX HAND MINIMUM 3 VIEWS RADEX HAND MINIMUM 3 VIEWS OFFICE/OUTPATIENT VISIT NEW Advance Directives Directive Yes / No Effective Date File Name No Information Encounters Encounter Description Practice Location Reason(s) For Visit Diagnoses Date Provider Providers Copied on Encounter [facility] , [address], [place], [address], [place] tel:[phone] [facility] No Information Nov- 2 Isauro Jules. [address], [place], [place], [id number]. tel:[phone] OFFICE/OUTPAT IENT VISIT EST [facility] , [address], [place], [address], [place] tel:[phone] [facility] Pain in both wristsRight carpal tunnel syndrome Sep- 2 Isauro Jules. [address], [place], [place], [address]. tel:[phone] Referring Provider: [address], [place], [address]. tel:[phone] OFFICE/OUTPAT IENT VISIT EST [facility] , [address], [place], [address], [place] tel:[phone] [facility] Pain in both wristsPain in right handPain in left hand 0 Isauro Jules. [address], [place], [place], [id number]. tel:[phone] OFFICE/OUTPAT IENT VISIT EST [facility] , [address], [place], [address], [place] tel:[phone] [facility] Pain in both wristsPain in left handPain in right hand Dec- 0 Box Jorge A. [address], [place], [place], [address]. tel:[phone] [facility] , [address], [place], [address], [place] tel:[phone] [facility] Pain in left wrist Dec- 3 0 No Information Referring Provider: Jorge A Box, [address], [place], [address] . tel:[phone] OFFICE/OUTPAT IENT VISIT NEW [facility] , [address], [place], [address], [place] tel:[phone] [facility] Pain in right handPain in left handPain in both wristsPain in left wrist Tyler Atkinson [address], [place], [place], [address]. tel:[phone] Family History Family Member Type Diagnosis Age At Onset No Information Payers Payer name Insurance type Covered alliance party ID Authorantoine denise(s) [employer] PPO E2 OT [id number] Social History Type Description Quantity Date Captured Comments Alcohol Use Details Unknown Caffeine Use Details Unknown Tobacco Use Status No Information Smoking Status No Information Sex Female Chief Complaint And Reason For Visit No Information Reason For Referral Reason For Referral No Information Plan Of Treatment Date Type Action Status Referral Ordered: MRI ANY JT UXTR C-MATRL LT wrist Appointment date/timeframe: 01/02/2020 ordered Referral Ordered: RADEX HAND MINIMUM 3 VIEWS RT ordered Referral Ordered: RADEX HAND MINIMUM 3 VIEWS LT ordered Future Order: Lab Order Rheumato id Factor ([id number]), Ordered on: Ordered History Of Present Illness Encounter Date Complaint History Of Prese nt Illness No Information Functional Status Date Functional Assessmen t No Information Instructions Date Instruction Additional Infor mation No Information Assessments Type Assessment Date No Information Patient Care Teams Name Effective Dates (start - stop) Status Members No Information
--- OUTSIDE RECORDS SUMMARY | 2024-05-15 02:27 | XMS_ITS | Patient Health Summary ---
Author Organization [facility] Address [address] [place] [address] Care Team Providers Care Contract Manager Name Role Phone Aretha Ha CORNELIO-COTTON CLEANER Primary Care Provider Note from [facility],non-owned Affiliates and Associated Physician Practices is amultiple site organization consisting of ambulatory clinics and hospital sitesin [place], [place], [place] and [place]. This disclosure is being madepursuant to the Care Everywhere program and may not contain all information available regarding this patient. Last updated 17.[employer] Allergies No known active allergies Medications Be [...] PM CDT Pulse 79 05/26/2018 5:52 PM METHOD CONSULTANT Temperature 36.8 C (98.2 F) 05/26/2018 5:52 PM METHOD CONSULTANT Respiratory Rate - - Oxygen Saturation 98% 05/26/2018 5:52 PM METHOD CONSULTANT Inhaled Oxygen Concentration - - Weight 55.8 kg (123 lb) 12/17/2020 2:32 PM CDT Height 160 cm (5' 3 ) 12/17/2020 2:32 PM CDT Body Mass Index 21.79 12/17/2020 2:32 PM CDT Procedures * HGB HCT PANEL(Performed 12/17/2020) Performed for Menorrhagia with regular cycle * PAP IG LB+HPV APTIMA(Performed 04/25/2020) Performed for Pap smear of cervix shows high risk HPV present * PAP IG LB+HPV APTIMA(Performed 10/24/2019) Performed for Pap smear of cervix shows high risk HPV present * PATHOLOGY SPECIMEN(Performed 04/17/2019) Performed for Pap smear of cervix shows high risk HPV present * CULTURE URINE(Performed 04/14/2019) Performed for Pap smear of cervix shows high risk HPV present, Acute vaginitis * URINALYSIS AUTO - POINT OF CARE(Performed 04/14/2019) Performed for Pap smear of cervix shows high risk HPV present, Acute vaginitis * WET PREP SMEAR - POINT OF CARE(Performed 04/14/2019) Performed for Acute vaginitis * PAP IG LB+HPV HR RFLX 16,18(Performed 04/03/2019) Performed for Well woman exam with routine gynecological exam * PAP IGP CERVICAL CANCER SCREENING(Performed 04/03/2019) Performed for Well woman exam with routine gynecological exam * HCG URINE QUALITATIVE - POINT OF CARE (AMB) STL(Performed 02/09/2019) Performed for Abnormal uterine bleeding (AUB) * FL HYSTEROSALPINGOGRAM(Performed 01/03/2019) Performed for Abnormal uterine bleeding (AUB), Pelvic peritoneal adhesions, female * HCG URINE QUALITATIVE - POINT OF CARE (AMB) STL(Performed 12/08/2018) Performed for Abnormal uterine bleeding (AUB) * STREP A SCREEN - POINT OF CARE (AMB) STL(Performed 05/26/2018) Performed for Cervical lymphadenopathy * PAP IG LB CT+GC+TV RFLX HPV HR ASCU(Performed 03/25/2018) Performed for Well woman exam with routine gynecological exam Results * HGB HCT PANEL (12/17/2020 2:53 PM CDT) Hemoglobin 12.1 11.1 - 15.9 g/dL [facility] ACCOUNT BILL Hematocrit 36.8 34.0 - 46.6 % [facility] ACCOUNT BILL Blood BLOOD SPECIMEN / Unknown 12/17/2020 2:53 PM CDT 12/17/2020 Narrative Resulting Agency Comment Lab Testing performed at: [facility] [address] [phone] Venkata Moreira MD LAB - HEMATOLOGY ORD ERABLES [facility] ACCOUNT BILL [address] [place] [address] * PAP IG LB+HPV APTIMA (04/25/2020 9:53 AM METHOD CONSULTANT) Only the most recent of2 resultswithin the time period is included. Diagnosis [facility] ACCOUNT BILL Comment:NEGATIVE FOR INTRAEP ITHELIAL LESION OR MALIGNANCY. Specimen Adequacy [facility] ACCOUNT BILL Comment:Satisfactory for nikita luation. No endocervical component is identified. Clinician Provided ICD10 [facility] ACCOUNT BILL Comment: Z01.419 R87.810 Performed by [facility] ACCOUNT BILL Comment:Alycia Patricio, Cytote chnologist (ASCP) Comment . [facility] ACCOUNT BILL [...] UTERINE CERVIX / Unknown 04/25/2020 9:53 AM METHOD CONSULTANT 04/25/2020 Narrative [facility] ACCOUNT BILL - 04/27/2020 10:09 AM METHOD CONSULTANT Source.............Cervix No. of containers..01 ThinPrep Vial Resulting Agency Comment Lab Testing performed at: [address] [place] [phone] Venkata Moreira MD LAB - PATHOLOGY/CYTO LOGY ORDERABLES [facility] ACCOUNT BILL [address] [place] [address] * PATHOLOGY SPECIMEN (04/17/2019 4:43 PM METHOD CONSULTANT) Material [facility] INSURANCE BILL Comment: Material submitted: . cervix - CERVICAL BIOPSY 7:00. Modifiers: 7:00 CLHIST [facility] INSURANCE BILL Comment: Clinical history: . 7:00 F Diagnosis [facility] INSURANCE BILL Comment: Diagnosis: CERVICAL BIOPSY 7:00: BENIGN SQUAMOUS MUCOSA. TRANSFORMATION ZONE NOT REPRESENTED. . GXA 04/19/2019 1212 Local Signed [facility] INSURANCE BILL Comment: Electronically signed: . Eugene Amezcua MD, Pathologist Grossed [facility] INSURANCE BILL Comment: Gross description: . 1 Container, formalin-filled, labeled with patient identification. CERVICAL BIOPSY 7:00: 1 FRAGMENT(S) OF OSEGUERA MUCOID TISSUE MEASURING 0.8 X 0.3 X 0.3 CM. SUBMITTED RECEIVED IN CASSETTE(S) A1. THE SPECIMEN IS SUBMITTED BETWEEN TWO SPONGES FOR PROCESSING. CUR/CUR 04/18/2019 0835 Local Pathologist Provided ICD10 [facility] INSURANCE BILL Comment: Pathologist provided ICD-10: N72 CPT [facility] INSURANCE BILL Comment: CPT . 812885 Pathology/Cytolog y CERVICAL BIOPSY SPECIMEN / Unknown 04/17/2019 4:43 PM METHOD CONSULTANT 04/18/2019 Narrative Resulting Agency Comment [facility]: [facility] [address] [facility] [phone] Venkata Moreira MD LAB - PATHOLOGY/CYTO LOGY ORDERABLES Performing Organization Address City/[facility]/ZIP Co de Phone Number [facility] INSURANCE BILL [address] [place] [address] * CULTURE URINE (04/14/2019 9:34 AM METHOD CONSULTANT) Pathologist [facility] Urine Culture Routine Final report [facility] ACCOUNT BILL Result 1 No growth [facility] ACCOUNT BILL Urine URINE SPECIMEN OBTAINED BY CLEAN CATCH PROCEDURE / Unknown 04/14/2019 9:34 AM METHOD CONSULTANT 04/14/2019 Narrative Resulting Agency Comment [facility]: [facility] [address] [facility] [phone] Venkata Moreira MD LAB - MICROBIOLOGY O RDERABLES Performing Organization Address City/[facility]/ZIP Co de Phone Number [facility] ACCOUNT BILL [address] [place] [address] * WET PREP SMEAR - POINT OF CARE (04/14/2019) Clue Cells (Wet Smear) POCT - Yeast (Wet Smr) - Trichomonads Wet Smear POCT - WBC (Wet Smr) Lactobacilli (Wet Smear) Whiff Test (Wet Smr) - pH Wet Smear RBC Wet Smear POCT Other VAGINAL SWAB / Unknown 04/14/2019 Venkata Moreira MD LAB - POINT OF CARE ORDERABLES * URINALYSIS AUTO - POINT OF CARE (04/14/2019) Clarity UA POCT clear Color UA POCT straw Leukocyte UA neg Negative Nitrite UA POCT neg Negative Urobilinogen UA 0.1 0.1 - 1.0 Protein UA POCT neg Negative pH UA 6.0 5.0 - 8.0 pH units Blood UA neg Negative Specific Rombauer UA POCT 1.010 1.002 - 1.030 Ketone UA neg Negative Bilirubin UA POCT neg Negative Glucose UA neg Negative Urine URINE / Unknown 04/14/2019 Venkata Moreira MD LAB - POINT OF CARE ORDERABLES * PAP IGP CERVICAL CANCER SCREENING (04/03/2019 9:27 AM METHOD CONSULTANT) Age Gdln ACOG Testing 30-65 [facility] ACCOUNT BILL PART OF UTERINE CERVIX / Unknown 04/03/2019 9:27 AM METHOD CONSULTANT 04/03/2019 Narrative [facility] ACCOUNT BILL - 04/07/2019 2:35 PM METHOD CONSULTANT No. of containers..01 ThinPrep Vial Resulting Agency Comment Lab Testing performed at: [facility] [phone] Venkata Moreira MD LAB - PATHOLOGY/CYTO LOGY ORDERABLES [facility] ACCOUNT BILL [address] [place] [address] * (ABNORMAL) PAP IG LB+HPV HR RFLX 16,18 (04/03/2019 9:27 AM METHOD CONSULTANT) Diagnosis [facility] ACCOUNT BILL Comment:NEGATIVE FOR INTRAEP ITHELIAL LESION OR MALIGNANCY. Specimen Adequacy [facility] ACCOUNT BILL Comment:Satisfactory for nikita luation. No endocervical component is identified. Clinician Provided ICD10 [facility] ACCOUNT BILL Comment: Z01.419 Z30.09 Performed by [facility] ACCOUNT BILL Comment:Alfonso Kern totechnologist (ASCP) Comment . [facility] ACCOUNT BILL Note [...] of an image guided system. Human papillomavirus High Risk Positive(A) Negative [facility] ACCOUNT BILL Comment: This nucleic acid amplification high-risk HPV test detects thirteen high-risk types (16,18,31,33,35,39,45,51,52,56,58,59,68) without differentiation. Human papillomavirus Genotype 16 Negative Negative [facility] ACCOUNT BILL Human papillomavirus Genotype 18 Negative Negative [facility] ACCOUNT BILL 04/03/2019 9:27 AM METHOD CONSULTANT 04/03/2019 Narrative [facility] ACCOUNT BILL - 04/07/2019 2:35 PM METHOD CONSULTANT No. of containers..01 ThinPrep Vial Resulting Agency Comment Lab Testing performed at: [facility] [id number] Venkata Moreira MD LAB - PATHOLOGY/CYTO LOGY ORDERABLES [facility] ACCOUNT BILL [address] [place] [address] * HCG URINE QUALITATIVE - POINT OF CARE (AMB) STL (02/09/2019) Only the most recent of2 resultswithin the time period is included. HCG Qual Urine Negative Negative HCG Urine QC NEG QC as expected NEGATIVE - POSITIVE HCG Urine QC POS QC as expected NEGATIVE - POSITIVE Expiration Date 08/19/2020 Lot # [id number] Urine URINE / Unknown 02/09/2019 Venkata Moreira MD LAB - POINT OF CARE ORDERABLES * FL HYSTEROSALPINGOGRAM (01/03/2019 11:01 AM CDT) Anatomical Region Laterality Modality Abdomen, Pelvis Radiographic Haylie ging 01/03/2019 2:56 PM CDT Impressions 01/03/2019 3:02 PM CDT Bilateral fallopian tube patency is confirmed Reading Radiologist: Gio Roldan MD on 01/03/2019 at 3:02 PM Narrative 01/03/2019 3:02 PM CDT HYSTEROSALPINGOGRAM INDICATION: Secondary infertility. She states she had a delivery 12 years ago, but has not conceived since that time. She states her last menses began about 11 days ago. TECHNIQUE: The examination was performed by Dr. Roldan. The procedure was explained to Ms. Sheehan, and all of her questions were answered. A time out was performed. With a speculum in place, the vagina and cervix were prepped with a Betadine solution. The balloon tipped catheter was flushed. A speculum was placed, but I was initially not able to visualize her cervix. I asked Dr. Sepulveda, the [place] INSTRUCTIONAL TECHNOLOGY COORDINATOR, for assistance, and he was able to find the cervix, very anteriorly. The balloon tipped catheter was then passed through the cervix, into the uterine cavity. 1 cc of air was injected into the balloon catheter and it was gently retracted against the cervix. About 8 cc of Isovue 300 were injected under fluoroscopic monitoring. After bilateral fallopian tube patency was confirmed, images to evaluate the endometrial contour were made as the balloon was deflated and slowly withdrawn. She received 0.8 minutes of fluoroscopy and 8 cc of Isovue-300. Her images were reviewed with her at the completion of the study. FINDINGS: The uterine cavity is normal. There is mild dilatation of the right fallopian tube, near its infundibula, but there is demonstration of peritoneal spill. Left fallopian tube is unremarkable. Procedure Note Gio Roldan MD - 01/03/2019 HYSTEROSALPINGOGRAM INDICATION: Secondary infertility. She states she had a delivery 12 years ago, but has not conceived since that time. She states her last menses began about 11 days ago. TECHNIQUE: The examination was performed by Dr. Roldan. The procedure was explained to Ms. Sheehan, and all of her questions were answered. A time out was performed. With a speculum in place, the vagina and cervix were prepped with a Betadine solution. The balloon tipped catheter was flushed. A speculum was placed, but I was initially not able to visualize her cervix. I asked Dr. Sepulveda, the [place] INSTRUCTIONAL TECHNOLOGY COORDINATOR, for assistance, and he was able to find the cervix, very anteriorly. The balloon tipped catheter was then passed through the cervix, into the uterine cavity. 1 cc of air was injected into the balloon catheter and it was gently retracted against the cervix. About 8 cc of Isovue 300 were injected under fluoroscopic monitoring. After bilateral fallopian tube patency was confirmed, images to evaluate the endometrial contour were made as the balloon was deflated and slowly withdrawn. She received 0.8 minutes of fluoroscopy and 8 cc of Isovue-300. Her images were reviewed with her at the completion of the study. FINDINGS: The uterine cavity is normal. There is mild dilatation of the right fallopian tube, near its infundibula, but there is demonstration of peritoneal spill. Left fallopian tube is unremarkable. IMPRESSION Bilateral fallopian tube patency is confirmed Reading Radiologist: Gio Roldan MD on 01/03/2019 at 3:02 PM Venkata Moreira MD FLUOROSCOPY ORDERABL ES * STREP A SCREEN (05/26/2018) Strep A Rapid POCT Negative Negative Strep A Internal Control Present Lot # [id number] Expiration Date 12/20/2019 Throat ENTIRE THROAT (SURFACE REGION OF NECK) / Unknown 05/26/2018 Ludivina Taylor INSPECTOR TOOL-COTTON CLEANER LAB - POINT OF CARE ORDERABLES * PAP IG LB CT+GC+TV RFLX HPV HR ASCU (03/25/2018 9:14 AM METHOD CONSULTANT) Diagnosis [facility] INSURANCE BILL Comment:NEGATIVE FOR INTRAEP ITHELIAL LESION AND MALIGNANCY. Specimen Adequacy [facility] INSURANCE BILL Comment: Satisfactory for evaluation. Endocervical and/or squamous metaplastic cells (endocervical component) are present. Clinician Provided ICD10 [facility] INSURANCE BILL Comment: Z01.419 Z30.09 Performed by [facility] INSURANCE BILL Comment:Iliana Falcon Cytot echnologist (ASCP) Comment . [facility] INSURANCE BILL Note [facility] INSURANCE BILL Comment: The Pap smear is a screening test designed to aid in the detection of premalignant and malignant conditions of the uterine cervix. It is not a diagnostic procedure and should not be used as the sole means of detecting cervical cancer. Both false-positive and false-negative reports do occur. . IGLBP CPT Code Automation [facility] INSURANCE BILL Comment: This liquid based ThinPrep(R) pap test was screened with the use of an image guided system. Note [facility] INSURANCE BILL Comment: The HPV DNA reflex criteria were not met with this specimen result therefore, no HPV testing was performed. . Chlamydia trachomatis SUKHDEEP Negative Negative [facility] INSURANCE BILL GC SUKHDEEP Negative Negative [facility] INSURANCE BILL Trichomonas vaginalis by SUKHDEEP Negative Negative [facility] INSURANCE BILL PART OF UTERINE CERVIX / Unknown 03/25/2018 9:14 AM METHOD CONSULTANT 03/25/2018 Narrative [facility] INSURANCE BILL - 03/29/2018 3:16 PM METHOD CONSULTANT Source.............Cervix;Endocervix No. of containers..01 ThinPrep Vial Resulting Agency Comment [facility] [address] [id number] Venkata Moreira MD LAB - PATHOLOGY/CYTO LOGY ORDERABLES [facility] INSURANCE BILL [address] [place] [address] Care Teams Contract Manager Relationship Specialty Start Date End Date Aretha Ha, INSPECTOR TOOL-COTTON CLEANER [address] [facility] [address] [place] [phone] PCP - General Nurse Practitioner 01/03/19
--- OUTSIDE RECORDS SUMMARY | 2024-05-15 02:27 | XMS_ITS | Referral Summary ---
Author Organization [facility] Address [address] [address] Care Team Providers Care Weight Checker Name Role Phone Aretha Ha CORNELIO-GYMNASIUM TEACHER Primary Care Provider Source Comments [facility],non-owned Affiliates and Associated Physician Practices is amultiple site organization consisting of ambulatory clinics and hospital sitesin [place], [place], [place] and [place]. This disclosure is being madepursuant to the Care Everywhere program and may not contain all information available regarding this patient. Last updated 17.[facility] [employer] Allergies No known active allergies Medications Be [...] PM CDT Pulse 79 05/26/2018 5:52 PM EMERGENCY SERVICES DIRECTOR Temperature 36.8 C (98.2 F) 05/26/2018 5:52 PM EMERGENCY SERVICES DIRECTOR Respiratory Rate - - Oxygen Saturation 98% 05/26/2018 5:52 PM EMERGENCY SERVICES DIRECTOR Inhaled Oxygen Concentration - - Weight 55.8 kg (123 lb) 12/17/2020 2:32 PM CDT Height 160 cm (5' 3 ) 12/17/2020 2:32 PM CDT Body Mass Index 21.79 12/17/2020 2:32 PM CDT Plan of Treatment Not on file Procedures Procedure Name Priority Date/Time Associated Diagnosis Comments PAP IG LB+HPV APTIMA Routine 04/25/2020 9:53 AM EMERGENCY SERVICES DIRECTOR Pap smear of cervix shows high risk HPV present from Last 3 Months or Most Recently Relevant to Health Maintenance Results * PAP IG LB+HPV APTIMA (04/25/2020 9:53 AM EMERGENCY SERVICES DIRECTOR) Diagnosis [facility] ACCOUNT BILL Comment:NEGATIVE FOR INTRAEP [...] UTERINE CERVIX / Unknown 04/25/2020 9:53 AM EMERGENCY SERVICES DIRECTOR 04/25/2020 Narrative [facility] ACCOUNT BILL - 04/27/2020 10:09 AM EMERGENCY SERVICES DIRECTOR Source.............Cervix No. of containers..01 ThinPrep Vial Resulting Agency Comment Lab Testing performed at: [facility] [address] [place] [phone] Venkata Moreira MD LAB - PATHOLOGY/CYTO LOGY ORDERABLES [facility] ACCOUNT BILL [address] [place] [address] from Last 3 Months or Most Recently Relevant to Health Maintenance Care Teams Weight Checker Relationship Specialty Start Date End Date Aretha Ha, TRUSS MAKER-GYMNASIUM TEACHER [address] [facility] [address] [place], [place] [phone] PCP - General Nurse Practitioner 01/03/19
--- OUTSIDE RECORDS SUMMARY | 2024-05-15 02:28 | XMS_ITS | Continuity of Care Document ---
Author Organization [facility] Address [address] [place] [address] Phone Care Team Providers Care Psychiatric Social Worker Supervisor Name Role Phone Jimmie Berger MD Unavailable Unavailable Allergies, Adverse Reactions, Alerts Substance Reaction Status Criticality No Known Allergies Active No Inform ation Medications Medication Instructions Dosage Effective Dates (start - stop) Status Comments tramadol 37.5 mg-acetaminophen 325 mg tablet take 1 tablet by oral route every 8 hours as needed for neck pain - Active meloxicam 15 mg tablet take 1 tablet by oral route every day for ear pain for 14 days - Active betamethasone valerate 0.1 % topical cream apply by topical route 2 times every day a thin layer to the affected area(s) for rash rub in well - Active ferrous sulfate 324 mg (65 mg iron) tablet,delayed release Take one tablet in the morning with Juniata juice - Active Zyrtec 10 mg tablet take 1 tablet by ora l route once a day as needed for allergies - Active fluticasone propionate 50 mcg/actuation nasal spray,suspension spray 1 spray in each nostril twice a day as needed for sinus congestion/allergies - Active Procedures Procedure Date OFFICE [id number] BODY MASS INDEX DOCD SYST BP LT 130 MM HG DIAST BP < 80 MM HG OFFICE [id number] SYST BP LT 130 MM HG DIAST BP < 80 MM HG OFFICE [id number] BODY MASS INDEX DOCD SYST BP LT 130 MM HG DIAST BP < 80 MM HG No Show Appt Charge CBC, INC PLATELETS AND DIFFERENTIAL COMPREHEN METABOLIC PANEL CMP FERRITIN LEVEL LIPID PANEL ROUTINE VENIPUNCTURE Pt inelig neg scrn depres PREVENTATIVE-EST: 18-39 BODY MASS INDEX DOCD SYST BP LT 130 MM HG DIAST BP 80-89 MM HG OFFICE [id number] BODY MASS INDEX DOCD SYST BP LT 130 MM HG DIAST BP < 80 MM HG FALL RISK ASSESSMENT DOC'D PRES/ABSN URINE INCON ASSESS OFFICE [id number] BODY MASS INDEX DOCD SYST BP LT 130 MM HG DIAST BP 80-89 MM HG ANTINUCLEAR ANTIBODIES (JOS) CBC, INC PLATELETS AND DIFFERENTIAL CYCLIC CITRULLINE PEPTIDE (CCP) 020 THYROID STIMULATION HORMONE(TSH) 2019 ROUTINE VENIPUNCTURE Advance Directives Directive Yes / No Effective Date File Name No Information Encounters Encounter Description Practice Location Reason(s) For Visit Diagnoses Date Provider Providers Copied on Encounter [facility], [address], [place], [place], [address] , [place] tel: [phone] [facility] No Information 4 Ab Samuel. [address], [place], [place], [address] , [place]. tel: [phone] [facility], [address], [place], [place], [address] , [place] tel: [phone] [facility] No Information 4 Ab Samuel. [address], [place], [id number] , [place]. tel: [phone] [facility], [address], [place], [place], [address] , [place] tel: [phone] [facility] Abnormal CT scan 4 Ab Samuel. [address], [place], [address] , [place]. tel: [phone] [facility], [address], [place], [place], [address] , [place] tel: [phone] [facility] Abnormal CT scan 4 Ab Samuel. [address], [place], [id number] , [place]. tel: [phone] OFFICE HINJA-HDK-CC TAILED [facility], [address], [place], [place], [address] , [place] tel: [phone] [facility] Health Maintenance (chief complaint) Body mass index [BMI] 22.0-22.9, adultEnlarged lymph nodeOtalgia, left ear 4 Ab Samuel. [address], [place], [address] , [place]. tel: [phone] Referring Provider: Jimmie Berger, [address], [place], [address] . tel:[phone] OFFICE SBAJR-WDW-XZ PANDED [facility], [address], [place], [place], [address] , [place] tel: [phone] [facility] health changes (chief complaint) Skin rash 4 Andreas Gonzales. [address], [place], [address] , [place]. tel: [phone] Referring Provider: Jimmie Berger, [address], [place], [address] . tel:[phone] OFFICE [id number] PANDED [facility], [address], [place], [place], [address] , tel: [phone] [facility] Rash (chief complaint) Body mass index [BMI] 23.0-23.9, adultPruritic dermatitis Sep- 4 Ab Samuel. [address], [place], [place], [address] , [place]. tel: [phone] Referring Provider: Jimmie Berger, [address], [place], [address] . tel:[phone] [facility], [address], [place], [place], [address] , tel: [phone] [facility] No Information 4 Billops Gwen. [address] [facility], [place], [place], [address] , [place]. tel: [phone] Referring Provider: Jimmie Berger, [address], [place], [address] . tel:[phone] [facility], [address], [place], [place], [address] , tel: [phone] [facility] No Information 4 Ab Samuel. [address], [place], [place], [address] , [place]. tel: [phone] PREVENTATIVE -EST: 18-39 [facility], [address], [place], [place], [address] , tel: [phone] [facility] PE (chief complaint) Screening for metabolic disorderEncounter for screening for diseases of the blood and blood-forming organs and certain disorders involving the immune mechanismScreenin g for cardiovascular conditionLow ferritin levelBody mass index [BMI] 22.0-22.9, adultAdult general medical exam Jun-0 4 Ab Samuel. [address], [place], [place], [address] , [place]. tel: [phone] Referring Provider: Jimmie Berger, [address], [place], [address] . tel:[phone] [facility]ICE [facility], [address], [place], [place], [address] , tel: [phone] [facility] .diarrhea (chief complaint) Diarrhea, unspecified typeThird trimester pregnancyAllergic rhinitis, unspecified allergic rhinitis type 2 Andreas Moreira. [address], [place], [place], [address] , [place]. tel: [phone] Referring Provider: Zeferino Girard, [address], [place], [address] . tel:[phone] [facility], [address], [place], [place], [address] , [place] tel: [phone] [facility] establish care (chief complaint) Encounter to establish careRight wrist pain 0 Shaji Mcgarry. [address], [place], [place], [address] , . tel: [phone] Referring Provider: Zeferino Girard, [address], [place], [address] . tel:[phone] Family History Family Member Type Diagnosis Age At Onset No Information Payers Payer name Insurance type Covered democrat ID Authorosvaldoa camelia(s) [facility] ACCESS [id number] Social History Type Description Quantity Date Captured Comments Alcohol Use Details Unknown Caffeine Use Details Unknown Tobacco Use Status No Information Smoking Status No Information Sex Female Chief Complaint And Reason For Visit No Information Reason For Referral Reason For Referral No Information Plan Of Treatment Date Type Action Status Goal Dietary manageme nt education, guidance, and counseling completed Goal Dietary manageme nt education, guidance, and counseling completed Goal Dietary manageme nt education, guidance, and counseling completed Referral Ordered: JACK GONZALEZ -Allopathic & Osteopathic Physicians : Internal Medicine (related to Abnormal CT scan) ordered Referral Referred To: JACK GONZALEZ [address] [facility] [address] [place], [place], [phone] Ordered: Referrals: Internal Medicine. JACK GONZALEZ. Evaluation/diagnostic/treatment - Level 3 ordered Referral [place] [address] [facility]
[address] [place], [phone] Ordered: Referrals: Otolaryngology. Lonny Sorensen MD. Evaluation/diagnostic/treatment - Level 3 Appointment date/timeframe: 02/24/2024 ordered Referral Referred To: Shyam Ramirez [address] [facility]
[address] [place], [phone] Ordered: Referrals: Internal Medicine. Shyam Ramirez. Evaluation/diagnostic/treatment - Level 3 Appointment date/timeframe: 02/15/2024 ordered Referral Ordered: SOFT TISSUE NECK CT W CONTRAST Appointment date/timeframe: 02/10/2024 ordered Appointment Martina Sheehan BOOKED Future Order: Lab Order Ova + James rasaddy (O&P) - 1 Specimen ([id number]), Sent on: Sent History Of Present Illness Encounter Date Complaint History Of Prese nt Illness Health Maintenance A 38 y/o fema le patient presents today for a painful lump on the back of her neck for 2 weeks.The lump is nonmobile, does not have any discharge, and pt denies fever or chills. She denies cat scratches. OTC medications did not help the symptoms.Pt reports that the left ear is swollen and was given Zithromax (Z-Jorge Luis).She feels that there is a bone sticking out of her right ear. health changes Patient came in for multiple medical problems both acute and chronic in nature.MLR: hbg 10, mcv 74, sugar 1123, ferr 4.28, hdl 65mammogram up to dateToday's blood pressure is 116/60. Patient denies chest pain and irregular heartbeats. Today's weight is 127 lbs. skin changes: Pt was evaluated on 12/09/23 for rashes on arm. Pt states treated did help. She recently had a an abx last week lump on her head. She states she had to stop the abx due to rash occurring. She states itchy and burning on skin. No redness or open sore. On back on head scalp lesion is resolved but she reports some tenderness. fine rough rash on R lower arm. Discussed treatment plan with pt. iron: due to heavy menstrual cycle. Pt states compliance with iron supplement. labs: advised repeat and pt refused labs after office visit. Rash Pt complains of pruritic rash on both arms, no fever, chills, warmth, denies new detergents, new products, not getting better with over the counter steroids, has been going on for 2 weeks. No other concerns. ROS: negative for fever, chills, SOB, dizziness, or LE swelling PE Pt is here for a nnual PEAdult General Medical Exam: Pt does not smoke, does not drink alcohol, and denies drugs. 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 Pt is up to date with age appropriate screening and vaccinations. Metabolic Screening: Will check CMPImmune Screening: Will check CBCCardiovascular Screening: Will check Lipid panelPt complains of eating Ice more since her last . Denies fever, chills, Fatigue, or hair loss. has not tried anything for it .diarrhea Pt in office adenike balbuena c/o diarrheaMLR: Current labs per OB/GYNRHM: Diarrhea:Pt states she has been having diarrhea for >1 month. (+) symptoms after every meal. Yellow chunky liquid. Denies fever, blood or chills. Her has this also. They have dogs & a cat.:Pt underwent IVF and is currently 7 months , having a girl. See's ENROLLMENT MANAGEMENT VICE PRESIDENT regularly. ENROLLMENT MANAGEMENT VICE PRESIDENT requested we order the stool tests. She has been craving ice more & just started taking ironCongestion:Pt states she feels like she has more mucous in her throat, nose has been stuffy. She's been taking OTC zyrtec w some relief. establish care 34 Year old newton arteaga presents to establish care. [place] [facility]Right Hand Pain: Pt c/o pain in her wrist x 10 months. Pt states that she had a nerve conduction study in [place]. Ruled out Carpal Tunnel Syndrome. She states that the pain is a throbbing in her wrist that radiates down her fingers. MRI showed some inflammation in cervical disks. She has received two steroid injections in her neck which did not help much (Pain management did not believe that it was due to neck). Her sister told her that there are some auto immune diseases in her family and that she should have blood work. She has done PT and worn a wrist splint. neither of which helped. She states that the pain progresses throughout the day, it gets worse as she uses her hands more. She has been taking ibuprofen for pain but had little relief. Denies any other joint pain. Suspect repetitive use injury. She notes that she has had weakening of her can runner, stating that she will occasionally drop things. Denies any weakness in her arms. Pt notes that when raising her right arm over her head she feels a pulling sensation in her shoulder and arm. This sensation is not present on her left side. Breast mass: Per mammogram in [place]- benign and needs no further workupPt follows with HYDRAULIC OIL TOOL OPERATOR at [facility]. Med/Surg Hx:Immunizations/ Testing:Family HXMother- HTN, CVAFather- Social HxBorn and raised inAd[facility] SystemAlcohol: NoneTobacco: NoneDrugs: NoneEducation: In college. Occupation: StudentRelationships: , 14 y/o child Functional Status Date Functional Assessmen t No Information Instructions Date Instruction Additional Infor bianka Pt shows no signs of infection in the ears. Meloxicam to be administered once a day with foods for two weeks straight to alleviate tension and swelling of the ears. Related to Otalgia, left ear -Head CT with contra st of posterior cervical nodes pending -history of breast cancer Related to Enlarged lymph node Dietary management e ducation, guidance, and counseling Related to Body mass index (BMI) 22.0-22.9, adult Apply Betamethasone cream to R arm twice daily and rub into skin well. Continue to monitor. Charting performed by Luma Lund acting as scribe for Dr. Johns. Marcelle Johns MD; I have reviewed and agreed with the documentation. Related to Skin rash Starting Clotrimazol e-betamethasone two times a day for 14 days, then as needed Related to Pruritic dermatitis Dietary management e ducation, guidance, and counseling Related to Body mass index (BMI) 23.0-23.9, adult -CBC: Pending Related to Encou nter for screening for diseases of the blood and blood-forming organs and certain disorders involving the immune mechanism -Ferritin: Pending Related to Lo w ferritin level -Lipid panel: Pending Related to Screening for cardiovascular condition -CMP: Pending Related to Scree jolanta for metabolic disorder -Today's blood press ure is: 118/80. Continue healthy diet and routine exercise. Today weight is: 127lbs-please wear a seat belt at all times-please follow with dentist every 6 months-colonoscopy screening starts at age 45-mammogram screening starts at age 40-Up to date with age appropriate screening and vaccinations-follow up in a year for annual physical exam Related to Adult general medical exam Dietary management e ducation, guidance, and counseling Related to Body mass index (BMI) 22.0-22.9, adult Continue care by OB/ HYDRAULIC OIL TOOL OPERATOR. Discussed immunizations Related to Third trimester Continue:Zyrtec po q a.m.StartFluticasone nasal spray BID (Script refilled)*Flush nose often w saline sprayNotify office if symptoms persist or worsen. Will continue to monitor Related to Allergic rhinitis, unspecified allergic rhinitis type > 1 month, a lso symptomatic. Send stool for culture, ova & parasites. Will treat if indicated pending results. Increase hydration. Notify office if symptoms persist or worsen. Related to Diarrhea, unspecified type Medication management Symptomatic. Recomme nd sleeping with wrist splint at night. Will refer to hand surgeon (Dr. Driver, or Dr. Mcmanus) for further evaluation. Script sent for Diclofenac cream. START applying to wrist up to three times daily as needed for pain. Checking labs for auto-immune causes. Notify for persisting or worsening symptoms. Will monitor. Labs: JOS, TSH, CBC, CCPFollow up in 12 months for physical or sooner as needed. Contact Dr. Girard or visit an Urgent Care BEFORE you go to the Emergency Room. The average wait for the emergency room is 6 hours and is more expensive than a visit to Urgent Care. Most patient medical problems can be handled by the Providers over the phone or in the office. Providers are available 24 hrs/day for medical problems. Office: [phone]. Charting performed by Yuridia Rutledge, acting as scribe for Walter Girard.Walter Girard MD: I reviewed the chart and agree with and approve of the documentation. Related to Right wrist pain Pt presents to the o ice to establish care. Labs will be drawn. Related to Encounter to establish care Medication management Assessments Type Assessment Date No Information Patient Care Teams Name Effective Dates (start - stop) Status Members No Information
--- OUTSIDE RECORDS SUMMARY | 2024-05-15 02:28 | XMS_ITS | Referral Summary ---
Author Organization [facility] [address] [facility] Address [address] [place] [address] Care Team Providers Care Railroad Operating Engineer Name Role Phone Zeferino Girard MD Unavailable Patti June MD Primary Care Provider [phone] Allergies Active Allergy Reactions Criticality Noted Date Comments Amoxicillin Hives Medium 04/05/2023 Medications triamcinolone (KENALOG) 0.1 % ointmentIndicati ons:Irritant contact dermatitis, unspecified trigger Apply topically 2 (two) times a day 30 g 4 Active Additional Information Patient not taking.Reported on 11/25/2023 gabapentin (NEURONTIN) 100 mg capsuleIndicatio ns:Neuropathic Pain Take 1 capsule TID and may increase up to 3 capsule TID.180 180 capsule 1 4 Active Active Problems Problem Noted Date Diagnosed Date Hereditary and idiopathic peripheral neuropathy 05/04/2023 Assessment & Plan (05/04/2023 12:10 PM DIRECTOR BUSINESS DEVELOPMENT): Patient is symptoms would be suggestive of a peripheral neuropathy. She has not myelopathic and was not found have any cervical issues contributing. While her symptoms are somewhat atypical for carpal tunnel there are most suggestive of carpal tunnel. Unfortunately the nerve conduction studies have not confirmed the presence of carpal tunnel even after years of symptoms. She has also not responded to splinting or cortisone injections in the carpal canal. I would recommend evaluation by a neurologist to see if the patient has other source of neuropathy and would like to reassess after their evaluation and input Social History Tobacco Use Types Packs/Day Years Used Date Smoking Tobacco: Never Smokeless Tobacco: Never Tobacco Cessation:Counseling Given: Not Answered Alcohol Use Standard Drinks/Week Comments Never 0 (1 standard drink = 0.6 oz pur e alcohol) Personal Safety Answer Date Recorded Have you ever been in or are you currently in a harmful physical or emotional relationship or is someone making you feel afraid or unsafe? Denies 09/17/2022 Comments No Sex and Gender Information Value Date Recorded Sex Assigned at Not on file Legal Sex Female 5:37 PM CDT Gender Identity Not on file Sexual Orientation Not on file Occupation Industry Job Start Date Job End Date n/a Not on file Not on file Not on file Last Filed Vital Signs Vital Sign Reading Time Taken Comments Blood Pressure 107/72 01/02/2024 4:31 PM CDT Pulse 82 01/02/2024 4:31 PM CDT Temperature 36.8 C (98.2 F) 01/02/2024 4:31 PM CDT Respiratory Rate 20 01/02/2024 4:31 PM CDT Oxygen Saturation 98% 01/02/2024 4:31 PM CDT Inhaled Oxygen Concentration - - Weight 59.9 kg (132 lb) 01/02/2024 4:31 PM CDT Height 160 cm (5' 3 ) 01/02/2024 4:31 PM CDT Body Mass Index 23.38 01/02/2024 4:31 PM CDT Plan of Treatment Not on file Insurance [facility] ACCESS ANTHEM ACCESS ANTHEM ACCESS ANTHEM ACCESS Care Teams Railroad Operating Engineer Relationship Specialty Start Date End Date Patti June MD [facility] [place] [address] PCP - General Emergency Medicine 01/02/24 Zeferino Girard MD [address] [place] [address] Internal Medicine 04/05/23
--- OUTSIDE RECORDS SUMMARY | 2024-05-15 02:28 | XMS_ITS | Clinical Summary ---
Author Organization [facility] [address] [facility] Address [address] [place] [address] Care Team Providers Care Wood Stock Blank Handler Name Role Phone Zeferino Girard MD Unavailable Patti June MD Primary Care Provider [phone] Allergies Active Allergy Reactions Criticality Noted Date [...] 05/04/2023 Assessment & Plan (05/04/2023 12:10 PM MERCHANDISE STOCKER): Patient is symptoms would be suggestive of [...] to reassess after their evaluation and input Surgical History Surgery Date Site/Laterality Comments SECTION 12/20/2021 - 01/19/2022 BREAST BIOPSY 08/24/2023 Right Family History Medical History Relation Name Comments Heart disease Father No Known Problems Mother Relation Name Status Comments Father Mother Social History Tobacco Use Types Packs/Day Years [...] file Not on file Not on file Obstetrics History Para Term AB IAB SAB Ectopic Multiple Livin g Live Births 2 2 2 0 0 0 0 0 Date Outcome GA Total Labor Labor/2nd/3rd Weight Sex Type Anes PTL Cherelle A1 A5 Name Clin Term Term Last Filed Vital Signs Vital Sign Reading [...] 01/02/2024 4:31 PM CDT Plan of Treatment Health Maintenance Due Date Last Done Comments Cervical Cancer Screening 1986 Depression Screening 1986 Hepatitis C Screening 1986 Varicella Vaccines (1 of 2 - 13+ 2-dose series) 1999 Hepatitis B Screening 2004 Regular Well Visit/Exam 18-64 2004 Influenza Vaccine (#1) 2023 , 12/01/2021, 12/23/2020, Additional history exists DTaP/Tdap/Td Vaccine (3 - Td or Tdap) 01/17/2031 01/17/2021, 06/16/2015 Covid-19 Vaccine Discontinued 12/15/2022, 02/2022, 04/03/2021, Additional history exists HPV Vaccines Aged Out No longer eligi ble based on patient's age to complete this topic Pneumococcal vaccine <65 Aged Out No longer eligible based on patient's age to complete this topic Insurance ANTHEM ACCESS ANTHEM ACCESS ANTHEM ACCESS ANTHEM ACCESS Care Teams Wood Stock Blank Handler Relationship Specialty Start Date End Date Patti June MD [address] [place] [address] PCP - General Emergency Medicine 01/02/24 Zeferino Girard MD [address] [place] [address] Internal Medicine 04/05/23
[2024-05-15] MEDS: LACTATED RINGERS 1,000 ML 30 ML IV CONT ×2 (09:00→10:19)
[2024-05-15 09:04] LABS: BEDSIDEPREGUCG Negative (Negative)
--- NOTE | 2024-05-15 09:25 | WPDHPUPDATE1 ---
History and Physical Update Update Date/Time: 05/15/24 09:25 History and Physical has been reviewed, including an updated exam of the patient. There are NO changes in the patient's condition. Risks, benefits, and alternatives have been discussed and questions answered. Patient agrees to proceed with procedure.
--- NOTE | 2024-05-15 09:25 | W.PM.PROC2 ---
Procedure Note - Detailed Date of Procedure 05/15/24 Pre-op Diagnosis neoplasm of the tongue, Lymphadenopathy Post-op Diagnosis Same Procedure Performed DL with biopsy of tongue base Surgeon Fabrizio Zamarripa MD Anesthesia General Indications neoplasm of tongue Findings left tongue base with lesion, consistent with tonsillar tissue, several biopsies taken. Description of Procedure On the date of surgery, the patient was identified in the preoperative holding area. All questions answered, consent signed and verified and they agreed to proceed. They were then brought to the OR and placed under general endotracheal anesthesia with a 6.5 sized endotracheal tube. A shoulder roll was placed. Timeout was performed verifying the correct patient identity and procedure to be performed which they were. The patient was then draped in standard fashion for direct laryngoscopy with biopsy. The bed was rotated 90 degrees counter-clockwise and a dental guard was placed to protect the upper teeth. A laryngoscope was then advanced in the oral cavity and upper airway to visualize all subsites of the oral cavity, oropharynx, hypopharynx and larynx. The only lesions noted were on the base of tongue. The patient was then suspended from the raoy stand. Under endoscopic visualization, using biopsy forceps, these lesions were removed with minimal damage to the healthy mucosa. Minimal bleeding occurred and did not require significant intervention for hemostasis. With all specimen removed, the procedure was concluded. The laryngoscope was removed, the dental guard removed, and the oral cavity was examined showing no injury to lips, gums, teeth or tongue. Care of the patient was returned to anesthesia who extubated the patient and transferred to the PACU for recovery in stable condition without complication. Estimated Blood Loss 5 Drains No Packing No Pathology Yes (left base of tongue) Complications No immediate complications Condition Stable Disposition PACU
--- NOTE | 2024-05-15 09:40 | P.PNAN_ITS ---
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, Lymphadenopathy Patient Data Age: 39 Gender: F Height: 1.6 m Weight: 59 kg Last Vital Signs Temp 97.7 F 05/15/24 08:58 Pulse 87 05/15/24 08:58 Resp 14 05/15/24 08:58 BP 125/64 05/15/24 08:58 Pulse Ox 100 05/15/24 08:58 O2 Del Method Room Air 05/15/24 08:58 Allergies Allergy/AdvReac Type Severity Reaction Status Date / Time No Known Allergies Allergy Verified 05/08/24 09:50 Home Medications ?Medication ?Instructions ?Recorded ?Confirmed ?Type No Home Medications 05/08/24 05/08/24 History Laboratory Tests 05/15/24 08:58 POC Urine HCG, Qual Negative (Negative) Patient hx anesthesia problems: none Family hx anesthesia problems: none Results Review: All pre-operative results and documents have been reviewed as part of the pre- operative evaluation. [facility] Past Medical History Medical History Anal fissure Internal and external hemorrhoids without complication Social History Social History Smoking status: Never smoker Alcohol intake: current Living arrangements: with family Spiritual care concerns: No Anes - Eval Final PreProcedure Day of Procedure 05/15/24 09:40 Patient weight: normal Lungs: normal air movement Airway: Mallampati scale class 1 Neurological: alert and oriented Last oral intake: >/= 8 hours ASA classification: I Emergent: no Anesthetic plan: proceed Anesthesia type and monitoring: general ETT and standard monitoring Results Review: All pre-operative results and documents have been reviewed as part of the pre-operative evaluation. Informed Consent: The patient's anesthetic plan and its attendant risks and benefits were discussed with the patient/family/POA. Questions were solicited and answers provided to the satisfaction of the patient/family/POA.
[2024-05-15] MEDS: ceFAZolin 2 GM/D5W 50 ML 2 GM/50 ML BAG IVPB (09:44)
[2024-05-15] MEDS: OXYMETAZOLINE HCL 0.05% NAS 15 ML BTL (*BKC) 1 SPRAY NASAL (10:02)
[2024-05-15] MEDS: fentaNYL CITRATE INJ (*CRX) 100 MCG/2 ML VIAL 25 MCG IV PUSH (10:44)
[2024-05-15] MEDS: oxyCODONE HCL (*CRX) 5 MG TAB IR PO (11:41)
== END 2024-05-15 12:07 | disposition home or self-care (01) ==
PROVIDERS: Visit Provider Otolaryngology
PROC: 0CJS8ZZ Inspection of Larynx, Via Natural or Artificial Opening Endoscopic (ICD-10-PCS; CPT 31536; principal; 2024-05-15 10:00)
DX: D37.02 Neoplasm of uncertain behavior of tongue (principal); R59.0 Localized enlarged lymph nodes; Z87.19 Personal history of other diseases of the digestive system
CPT/HCPCS: 31536; 88305; A9270; J0690; J1100; J2003; J2250; J2405; J2704; J3010; J7120